=== PATIENT | female | born 1980 | race Caucasian/White ===

== ENCOUNTER 2017-01-24 06:54 | Inpatient (IN) | payer MEDICAID ==
[~2017-01-24] VITALS: Ht 170.2 cm; Wt 64.4 kg
[~2017-01-24 06:54] MED LIST: ALBU18HF INHALATION
--- NOTE | 2017-01-24 07:18 | ERA ---
ER Documentation Chief Complaint Date/Time DATE: 01/24/17 TIME: 07:14 Chief Complaint left side facial swelling with no drainage. possible shooting drugs HPI Patient is a 36-year-old female who presents with 1 week of gradual onset, constant, progressive, moderate left-sided facial swelling. She denies trauma. She reports subjective fevers. She states that it has been getting progressively worse and that she has difficulty opening her mouth. She states that she was seen [facility] yesterday and had a CT scan performed. She was diagnosed with a contusion and prescribed Keflex. She came back to the ER because her symptoms have worsened since. ROS All systems reviewed and are negative except as per history of present illness. Medications Home Meds Discontinued Scripts Albuterol Sulfate* (Ventolin HFA*) 18 Gm Hfa.aer.ad, 2 PUFF INHALATION Q4H, #1 INHALER Prov:DAYO RAELaura 04/27/16 Allergies Allergies: Coded Allergies: No Known Allergy (Unverified , 01/24/17) PMhx/Soc Past medical history: Ovarian cancer, colon cancer, asthma Past surgical history: Resection of colon cancer Social history: Injects methamphetamine, reports recent use. Smokes cigarettes. History of Surgery: Yes (colon resection) Anesthesia Reaction: No Hx Neurological Disorder: Yes (Migraines) Hx Respiratory Disorders: No Hx Cardiac Disorders: Yes (STATES "CO") Hx Psychiatric Problems: No Hx Miscellaneous Medical Probl: Yes (OVARIAN CA, Colon CA, arthritis) Hx Alcohol Use: Yes Hx Substance Use: Yes (METH ) Hx Tobacco Use: Yes Smoking Status: Current every day smoker FmHx Family History: No coronary disease, No diabetes Physical Exam Vitals Vital Signs Date Time Temp Pulse Resp B/P Pulse Ox O2 Delivery O2 Flow Rate FiO2 01/24/17 13:16 98.9 78 16 128/84 100 Room Air 01/24/17 09:42 99.1 81 16 126/86 100 Room Air 01/24/17 07:01 99.5 98 18 123/89 100 Physical Exam Const: Alert, no acute distress Head: Atraumatic Eyes: Normal Conjunctiva, No pallor, no icterus ENT: Normal External EarsAnd nose. Left facial edema extending to the lip with mild abrasion to the skin. Dentition grossly intact. Imaged mouth opening. No submandibular induration. Neck: Full range of motion..~ No meningismus. Resp: Clear to auscultation bilaterally, No wheezes, no rales Cardio: Regular rate and rhythm, no murmurs Abd: Soft, non tender, non distended. Skin: No petechiae or rashes Back: No midline or flank tenderness Ext: No cyanosis, or edema Neur: Awake and alert Psych: Normal Mood and Affect Result Diagram: 01/24/17 0750 01/24/17 0750 Results 24 hrs Laboratory Tests Test 01/24/17 07:50 White Blood Count 8.910^3/ul Red Blood Count 3.6710^6/ul Hemoglobin 10.9g/dl Hematocrit 33.9% Mean Corpuscular Volume 92.4fl Mean Corpuscular Hemoglobin 29.7pg Mean Corpuscular Hemoglobin Concent 32.2g/dl Red Cell Distribution Width 13.7% Platelet Count 20191^3/UL Mean Platelet Volume 10.3fl Neutrophils % 75.3% Lymphocytes % 16.5% Monocytes % 6.8% Eosinophils % 0.8% Basophils % 0.3% Nucleated Red Blood Cells % 0.0/100WBC Neutrophils # (Manual) 6.710^3/ul Lymphocytes # 1.510^3/ul Monocytes # 0.610^3/ul Eosinophils # 0.110^3/ul Basophils # 0.010^3/ul Nucleated Red Blood Cells # 0.010^3/ul Sodium Level 139mmol/L Potassium Level 3.7mmol/L Chloride Level 105mmol/L Carbon Dioxide Level 27mmol/L Anion Gap 11 Blood Urea Nitrogen 6mg/dl Creatinine 0.55mg/dl Glucose Level 97mg/dl Calcium Level 8.7mg/dl Serum HCG, Qualitative NEGATIVE Current Medications Medications (Trade) Dose Ordered Sig/Andie Route PRN Reason Start Time Stop Time Status Last Admin Dose Admin Sodium Chloride 1,000 ml @ 1,000 mls/hr Q1H ONCE IV 01/24/17 07:30 01/24/17 08:29 DC 01/24/17 07:45 Ceftriaxone Sodium 50 ml @ 100 mls/hr ONCE ONCE IVPB 01/24/17 07:30 01/24/17 07:59 DC 01/24/17 08:23 Vancomycin HCl/ Sodium Chloride (Vancocin/NS) 250 ml @ 125 mls/hr ONCE ONCE IVPB 01/24/17 07:30 01/24/17 09:29 DC 01/24/17 07:30 IV Flush 10 ml 10 ml STK-MED ONCE .ROUTE 01/24/17 08:55 01/24/17 08:56 DC 01/24/17 09:21 Sodium Chloride (NS) 100 ml @ ud STK-MED ONCE .ROUTE 01/24/17 08:55 01/24/17 08:56 DC 01/24/17 09:22 Iohexol (Omnipaque 300mg/ ml) 30 ml STK-MED ONCE .ROUTE 01/24/17 08:55 01/24/17 08:56 DC 01/24/17 09:22 Lidocaine/ Epinephrine (Xylocaine 2%/ Epi Mpf(Sdv)) 20 ml STK-MED ONCE .ROUTE 01/24/17 12:14 01/24/17 12:15 DC Morphine Sulfate (morphine) 4 mg ONCE STAT IV 01/24/17 12:27 01/24/17 12:28 DC 01/24/17 12:34 Morphine Sulfate (morphine) 4 mg ONCE STAT IV 01/24/17 14:01 01/24/17 14:03 DC 01/24/17 14:15 Procedures/MDM Patient is a 36-year-old female who presents with extensive left-sided facial swelling. She had a CT maxillofacial bones performed yesterday without contrast at an outside hospital, and I was able to obtain the records. There is no comment on the soft tissues however. Therefore the patient had a CT with contrast, which demonstrates an abscess. I called Dr. Cabrera, the ENT doctor slot operations manager, and he saw the patient in the ER and performed an incision and drainage. The abscess appeared to arise from a periodontal abscess. The patient was treated with IV fluids, vancomycin and ceftriaxone. Given extensive cellulitis associated with the abscess, I will admit the patient for IV antibiotics and further treatment. Departure Diagnosis: Primary Impression: Cellulitis and abscess of face Condition: KAREN Gale MD Jan 24, 2017 07:17
[2017-01-24] MEDS ORDERED: VANCOMYCIN 1 GM in SOD CHLORIDE 0.9% 250 ML IVPB ONE (07:30)
[2017-01-24] MEDS ORDERED: CEFTRIAXONE 2 GM/50 ML (PMX) 50 ML IVPB ONE (07:30)
[2017-01-24] MEDS ORDERED: SOD CHLORIDE 0.9% 1,000 ML IV ONE (07:30)
[2017-01-24 08:22] LABS: BASOPHILS % 0.3 % (0.0-2.0); EOSINOPHILS # 0.1 10^3/ul (0.0-0.5); EOSINOPHILS % 0.8 % (0.0-7.0); HEMATOCRIT 33.9 % (37.0-47.0); HEMOGLOBIN 10.9 g/dl (12.0-16.0); LYMPHOCYTES # 1.5 10^3/ul (0.8-2.9); LYMPHOCYTES % 16.5 % (15.0-51.0); MEAN CORPUSCULAR HEMOGLOBIN 29.7 pg (29.0-33.0); MEAN CORPUSCULAR HGB CONC 32.2 g/dl (32.0-37.0); MEAN CORPUSCULAR VOLUME 92.4 fl (82.0-101.0); MEAN PLATELET VOLUME 10.3 fl (7.4-10.4); MONOCYTE # 0.6 10^3/ul (0.3-0.9); MONOCYTES % 6.8 % (0.0-11.0); NEUTROPHILS % 75.3 % (39.0-77.0); PLATELET COUNT 246 10^3/UL (140-415); RED BLOOD COUNT 3.67 10^6/ul (4.20-5.40); RED CELL DISTRIBUTION WIDTH 13.7 % (11.5-14.5); WHITE BLOOD COUNT 8.9 10^3/ul (4.8-10.8)
[2017-01-24 08:25] LABS: CALCIUM 8.7 mg/dl (8.4-10.2); CREATININE 0.55 mg/dl (0.44-1.00); POTASSIUM 3.7 mmol/L (3.5-5.1)
[2017-01-24] MEDS ORDERED: SOD CHLORIDE 0.9% 100 ML ONE (08:55)
[2017-01-24] MEDS ORDERED: IOHEXOL 300MG/ML 30 ML BTL ONE (08:55)
--- NOTE | 2017-01-24 09:34 | RADRPT ---
PROCEDURE: CT facial bones with contrast CLINICAL INDICATION: Left sided facial swelling. Concern for abscess. COMPARISON: None relevant listed. TECHNIQUE: Axial images of the facial bones with coronal and sagittal reformats. 80 mL Omnipaque-300 intravenous contrast. DOSE: The estimated administered radiation dose was CTDI vol = 54 mGy. DLP = 969 mGy-cm. One or mo re of the following dose reduction techniques were used: automated exposure control, adjustment of t he mA and/or kV according to patient size, or use of iterative reconstruction. FINDINGS: Soft tissues: . Focal lucency about the left maxillary tooth (#13 on series 4, image 113) with mata kthrough of the buckle cortex and surrounding soft tissue abscess measuring 19 x 18 x 14 mm. Marked surrounding edema and inflammation extending to the left parasymphyseal mandible. Multiple enlarged reactive left level IB and IIA lymph nodes. Bones: Old fracture of the right lamina papyracea. Orbits: Normal. Paranasal sinuses: Mild paranasal sinus mucosal thickening. Mastoids and middle ears: Clear. Visualized brain: Normal. Additional comment: None. IMPRESSION: Periodontal abscess involving left maxillary tooth #13 which breaks through the maxillary cortex. T here is a surrounding soft tissue abscess measuring 19 x 18 x 14 mm with large amount of surrounding cellulitis and reactive lymph nodes. RPTAT: PP Physician Chelita Date Time Electronically viewed and signed by Physician Chelita on 01/24/2017 09:34 /
[2017-01-24] MEDS ORDERED: LIDOCAINE 2%/EPI MPF (SDV) 20 ML VIAL ONE (12:14)
[2017-01-24] MEDS ORDERED: morphine 4 MG/ML VIAL IV STA ×2 (12:27→14:01)
[2017-01-24] MEDS ORDERED: DOCUSATE SODIUM 100 MG CAP PO PRN (15:30)
[2017-01-24] MEDS ORDERED: NA PHOSPHATE/BIPHOS 133 ML ENEMA PR PRN (15:30)
[2017-01-24] MEDS ORDERED: MAGNESIUM HYDROXIDE 30ML CUP PO PRN (15:30)
[2017-01-24] MEDS ORDERED: morphine 2 MG INJ IV PRN (15:30)
[2017-01-24] MEDS ORDERED: NACL 0.9% 3 ML SYG IV SCH (15:30)
[2017-01-24] MEDS ORDERED: BISACODYL (EC) 5 MG TAB PO PRN (15:30)
[2017-01-24] MEDS ORDERED: ACETAMINOPHEN 325 MG TAB PO PRN (15:30)
[2017-01-24] MEDS ORDERED: OXYCODONE/ACETAMINOPHEN (10/325) TAB PO PRN (15:30)
[2017-01-24] MEDS ORDERED: VANCOMYCIN IV PER PHARMACY XX SCH (15:30)
[2017-01-24] MEDS ORDERED: ONDANSETRON 4 MG INJ IV PRN ×2 (15:30)
[2017-01-24 16:00] VITALS: TEMP 98.2
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
--- NOTE | 2017-01-24 16:52 | CONS ---
Date/Time of Note Date/Time of Note DATE: 01/24/17 TIME: 16:35 Assessment/Plan Assessment/Plan Chief Complaint/Hosp Course ID SHORT CHART REVIEW - INITIAL ASSESSMENT NOTE * Full consult note dictation to follow from Dr. Busby, covering for Dr. Siddiqui * * Note: Patient was not seen; note represents initial chart review. HPI 36 YO F presents to [facility] ED with severe facial cellulitis. Seen at [facility] yesterday given Rx Keflex. => INITIAL ED WORK UP: * TMax 99.5, WBC 8.9 * Facial CT reveals: IMPRESSION:Periodontal abscess involving left maxillary tooth #13 which breaks through the maxillary cortex. There is a surrounding soft tissue abscess measuring 19 x 18 x 14 mm with large amount of surrounding cellulitis and reactive lymph nodes. * ENT called for urgent consult: Dr. Cabrera, saw the patient in the ER and performed an incision and drainage. Reportedly, the abscess appeared to arise from a periodontal dental infection abscess. Past medical history: Ovarian cancer, colon cancer, asthma, OR, migraine RAJPUT Past surgical history: Resection of colon cancer Social history: Injects methamphetamine, reports recent use. Smokes cigarettes. ID IMPRESSION 36 yo F with medical problems as above admit with: 1. SIRS w/ low grade temps due to #2 2. Severe facial cellulitis 2/2 Periodontal abscess involving left maxillary tooth #13 which breaks through the maxillary cortex, with surrounding soft tissue abscess/ * POD #0-> s/p I&D in ED by Dr. Cabrera 01/24/17 3. Substance abuse w/METH injection -> Query submucosal self-injecting into oral cavity? 4. Tobaccoism 5. Psych/Social Dx NOS ?Homeless CURRENT ABX: Vanco IV + Ceftriaxone ID RECOMMENDATIONS: 1. Continue Vanco IV 2. Swab nares for MRSA screen 3. Start Zosyn 4. Thank you, I have notified Dr. Busby, ID attending personal care aide for Dr. Siddiqui who will complete full note dictation. Problems: Consultation Date/Type/Reason Admit Date/Time Initial Consult Date Exam/Review of Systems Vital Signs Vitals Vital Signs Date Time Temp Pulse Resp B/P Pulse Ox O2 Delivery O2 Flow Rate FiO2 01/24/17 13:16 98.9 78 16 128/84 100 Room Air Results Result Diagram: 01/24/17 0750 01/24/17 0750 Results 24 hrs Laboratory Tests Test 01/24/17 07:50 White Blood Count 8.9 # Red Blood Count 3.67 L Hemoglobin 10.9 L Hematocrit 33.9 L Mean Corpuscular Volume 92.4 Mean Corpuscular Hemoglobin 29.7 Mean Corpuscular Hemoglobin Concent 32.2 Red Cell Distribution Width 13.7 Platelet Count 246 Mean Platelet Volume 10.3 # Neutrophils % 75.3 Lymphocytes % 16.5 Monocytes % 6.8 Eosinophils % 0.8 Basophils % 0.3 Nucleated Red Blood Cells % 0.0 Neutrophils # (Manual) 6.7 Lymphocytes # 1.5 Monocytes # 0.6 Eosinophils # 0.1 Basophils # 0.0 Nucleated Red Blood Cells # 0.0 Sodium Level 139 Potassium Level 3.7 Chloride Level 105 Carbon Dioxide Level 27 Anion Gap 11 Blood Urea Nitrogen 6 L Creatinine 0.55 Glucose Level 97 Calcium Level 8.7 Serum HCG, Qualitative NEGATIVE Medications Medications Current Medications Sodium Chloride (NS) 1,000 ml @ 125 mls/hr Q8H IV ; Start 01/24/17 at 15:09 Ondansetron HCl (Zofran Inj) 4 mg Q6H PRN IV NAUSEA AND/OR VOMITING; Start 01/24 at 15:30 Acetaminophen (Tylenol Tab) 650 mg Q6H PRN PO PAIN LEVEL 1-3 OR FEVER; Start at 15:30 Docusate Sodium (Colace) 100 mg Q12H PRN PO CONSTIPATION; Start 01/24/17 at 15: 30 Magnesium Hydroxide (Milk Of Mag) 30 ml DAILY PRN PO CONSTIPATION; Start at 15:30 Bisacodyl (Dulcolax) 5 mg DAILY PRN PO CONSTIPATION; Start 01/24/17 at 15:30 Sodium Biphosphate/ Sodium Phosphate (Fleet Enema) 133 ml DAILY PRN [place] CONSTIPATION; Start 01/24/17 at 15:30 Oxycodone/ Acetaminophen (Endocet (10/ 325)) 1 tab Q3 PRN PO MODERATE PAIN LEVEL 4-6; Start 01/24/17 at 15:30 Morphine Sulfate 2 mg 2 mg Q6 PRN IV SEVERE PAIN LEVEL 7-10; Start 01/24/17 at 15:30 Vancomycin HCl/ Sodium Chloride (Vancocin/NS) 150 ml @ 75 mls/hr Q8H IVPB ; Start 01/24/17 at 17:00 Miscellaneous Information (*Rx Drug Level Order Reminder*) VANCOMYCIN TROUGH ON ... ONCE ONCE XX ; Start 01/25/17 at 08:00; Stop 01/25/17 at 08:01 LAZ ZHANG NP Jan 24, 2017 16:51
[2017-01-24] MEDS ORDERED: VANCOMYCIN 750 MG in SOD CHLORIDE 0.9% 150 ML IVPB SCH (17:00)
[2017-01-24 17:05] VITALS: BP 133/73; PULSE 92; RESP 18
[2017-01-24] MEDS: SOD CHLORIDE 0.9% 1,000 ML IV SCH ×2 (17:29→23:09)
[2017-01-24 18:09] VITALS: Ht 170.2 cm; Wt 64.4 kg
[2017-01-24] MEDS ORDERED: PIPER-TAZO 3.375 GM IV (PMX) 100 ML IVPB SCH (20:00)
[2017-01-24] MEDS: ACETAMINOPHEN 325 MG TAB PO PRN (20:28)
[2017-01-24 20:54] VITALS: BP 121/73; RESP 18
[2017-01-24] MEDS: DEXTROSE 5% IVPB SCH (23:32)
[2017-01-24] MEDS: PENICILLIN K IVPB SCH (23:32)
[2017-01-25] MEDS: ACETAMINOPHEN 325 MG TAB PO PRN ×2 (02:43→22:39)
[2017-01-25 03:17] VITALS: BP 124/74; RESP 18
[2017-01-25] MEDS: SOD CHLORIDE 0.9% 1,000 ML IV SCH ×3 (04:14→21:37)
[2017-01-25] MEDS: DEXTROSE 5% IVPB SCH ×2 (05:30→12:17)
[2017-01-25] MEDS: PENICILLIN K IVPB SCH ×2 (05:30→12:17)
[2017-01-25 05:52] LABS: HAAIG REFLEX REFLEX FILED
[2017-01-25 05:58] LABS: BASOPHILS % 0.4 % (0.0-2.0); EOSINOPHILS # 0.1 10^3/ul (0.0-0.5); EOSINOPHILS % 1.2 % (0.0-7.0); HEMATOCRIT 35.5 % (37.0-47.0); HEMOGLOBIN 11.1 g/dl (12.0-16.0); LYMPHOCYTES # 0.7 10^3/ul (0.8-2.9); LYMPHOCYTES % 9.9 % (15.0-51.0); MEAN CORPUSCULAR HEMOGLOBIN 28.7 pg (29.0-33.0); MEAN CORPUSCULAR HGB CONC 31.3 g/dl (32.0-37.0); MEAN CORPUSCULAR VOLUME 91.7 fl (82.0-101.0); MEAN PLATELET VOLUME 10.5 fl (7.4-10.4); MONOCYTE # 0.4 10^3/ul (0.3-0.9); MONOCYTES % 5.2 % (0.0-11.0); NEUTROPHILS % 82.9 % (39.0-77.0); PLATELET COUNT 236 10^3/UL (140-415); RED BLOOD COUNT 3.87 10^6/ul (4.20-5.40); RED CELL DISTRIBUTION WIDTH 14.1 % (11.5-14.5); WHITE BLOOD COUNT 7.4 10^3/ul (4.8-10.8)
[2017-01-25 06:29] LABS: ALBUMIN 3.2 g/dl (3.3-4.9); ALBUMIN/GLOBULIN RATIO 1.03; BILIRUBIN,INDIRECT 0.3 mg/dl (0-1.1); BILIRUBIN,TOTAL 0.3 mg/dl (0.2-1.3); CALCIUM 8.5 mg/dl (8.4-10.2); CHOL/HDL RATIO 2.6 RATIO; CREATININE 0.44 mg/dl (0.44-1.00); MAGNESIUM 1.9 mg/dl (1.7-2.5); PHOSPHORUS 3.4 mg/dl (2.5-4.9); POTASSIUM 3.2 mmol/L (3.5-5.1); TOTAL PROTEIN 6.3 g/dl (6.1-8.1)
[2017-01-25 06:33] LABS: IRON 12 ug/dl (35-150)
[2017-01-25 06:42] LABS: TOTAL IRON BINDING CAPACITY 285 ug/dl (241-421)
[2017-01-25 06:47] LABS: ADD UMIC NO; UR ASCORBIC ACID NEGATIVE (NEGATIVE); UR BILIRUBIN (Dip) NEGATIVE (NEGATIVE); UR BLOOD (Dip) NEGATIVE (NEGATIVE); UR CLARITY CLEAR (CLEAR); UR COLOR STRAW (YELLOW); UR GLUCOSE (Dip) NEGATIVE (NEGATIVE); UR KETONES (Dip) NEGATIVE (NEGATIVE); UR LEUKOCYTE ESTERASE (Dip) NEGATIVE Leu/ul (NEGATIVE); UR NITRITE (Dip) NEGATIVE (NEGATIVE); UR SPECIFIC GRAVITY (Dip) 1.009 (1.003-1.030); UR TOTAL PROTEIN (Dip) NEGATIVE (NEGATIVE); UR UROBILINOGEN (Dip) NEGATIVE (NEGATIVE)
[2017-01-25 06:55] LABS: FERRITIN 54.4 ng/ml (6.2-137.0)
[2017-01-25 07:09] LABS: HEPATITIS B CORE ANTIBODY NEGATIVE (NEGATIVE)
[2017-01-25 07:32] LABS: THYROID STIMULATING HORMONE 0.476 MIU/L (0.465-4.680)
[2017-01-25 07:57] VITALS: BP 119/77; RESP 20
[2017-01-25] MEDS ORDERED: POTASSIUM CHLORIDE (SR) 20 MEQ TAB PO STA (13:45)
--- NOTE | 2017-01-25 13:51 | PN ---
Date/Time of Note Date/Time of Note DATE: 01/25/17 TIME: 13:42 Assessment/Plan VTE Prophylaxis VTE Prophylaxis Intervention: SCD's Lines/Catheters IV Catheter Type (from Nrsg): Peripheral IV Assessment/Plan Assessment/Plan 1. Periodontal abscess involving left maxillary tooth #13 which breaks through the maxillary cortex with surrounding soft tissue abscess measuring 19 x 18 x 14 mm with large amount of surrounding cellulitis and reactive lymph nodes, s/p I&D per ENT Dr. Cabrera, on zosyn/vanco 2. Hypokalemia, KCL Subjective 24 Hr Interval Summary Free Text/Dictation left facial pain and swelling Exam/Review of Systems Vital Signs Vitals Vital Signs Date Time Temp Pulse Resp B/P Pulse Ox O2 Delivery O2 Flow Rate FiO2 01/25/17 07:57 98.1 74 20 119/77 99 01/24/17 17:05 Room Air Intake and Output 01/24/17 01/24/17 01/25/17 15:00 23:00 07:00 Intake Total 1150 ml 183 ml 2045 ml Balance 1150 ml 183 ml 2045 ml Exam Constitutional: alert, oriented, well developed Head: atraumatic, normocephalic Eyes: EOMI, nl conjunctiva, nl lids ENMT: nl external ears & nose, other (left facial swelling) Neck: non-tender, supple Respiratory: clear to auscultation, normal air movement, No congested cough, No crackles/rales, No diminished breath sounds, No intercostal retraction, No labored breathing, No other, No respirations, No tactile fremitus, No wheezing Cardiovascular: nl pulses, regular rate and rhythm, No S3, No S4, No bruits, No diastolic murmur, No edema, No gallop, No irregular rhythm, No jugular venous distention (JVD), No murmurs/extra sounds, No other, No rub, No systolic murmur Gastrointestinal: nl liver, spleen, non-tender, soft, No ascites, No bowel sounds, No distended, No firm, No hepatomegaly, No mass , No other, No rebound or guarding, No splenomegaly, No surgical scars, No tender Musculoskeletal: nl extremities to inspection Extremities: normal pulses, No calf tenderness, No clubbing, No cyanosis, No edema, No other, No palpable cord, No pitting pedal edema, No tenderness Neurological: EMPLOYMENT COORDINATOR II-XII intact, nl mental status, nl speech, nl strength Results Result Diagram: 01/25/1744201/25/173 Results 24 hrs Laboratory Tests Test 01/25/17 02:30 01/25/17 04:43 01/25/17 08:00 Urine Color STRAW Urine Clarity CLEAR Urine pH 7.0 Urine Specific Moodus 1.009 Urine Ketones NEGATIVE Urine Nitrite NEGATIVE Urine Bilirubin NEGATIVE Urine Urobilinogen NEGATIVE Urine Leukocyte Esterase NEGATIVE Urine Hemoglobin NEGATIVE Urine Glucose NEGATIVE Urine Total Protein NEGATIVE White Blood Count 7.4 Red Blood Count 3.87 L Hemoglobin 11.1 L Hematocrit 35.5 L Mean Corpuscular Volume 91.7 Mean Corpuscular Hemoglobin 28.7 L Mean Corpuscular Hemoglobin Concent 31.3 L Red Cell Distribution Width 14.1 Platelet Count 236 Mean Platelet Volume 10.5 H Neutrophils % 82.9 H Lymphocytes % 9.9 L Monocytes % 5.2 Eosinophils % 1.2 Basophils % 0.4 Nucleated Red Blood Cells % 0.0 Neutrophils # (Manual) 6.2 Lymphocytes # 0.7 L Monocytes # 0.4 Eosinophils # 0.1 Basophils # 0.0 Nucleated Red Blood Cells # 0.0 Sodium Level 136 Potassium Level 3.2 L Chloride Level 103 Carbon Dioxide Level 27 Anion Gap 9 Blood Urea Nitrogen 4 L Creatinine 0.44 Glucose Level 99 Hemoglobin A1c 5.2 Calcium Level 8.5 Phosphorus Level 3.4 Magnesium Level 1.9 Iron Level 12 L Total Iron Binding Capacity 285 Percent Iron Saturation 4 L Ferritin 54.4 Total Bilirubin 0.3 Direct Bilirubin 0.00 Indirect Bilirubin 0.3 Aspartate Amino Transf (AST/SGOT) 28 Alanine Aminotransferase (ALT/SGPT) 31 Alkaline Phosphatase 100 Total Protein 6.3 Albumin 3.2 L Globulin 3.10 Albumin/Globulin Ratio 1.03 Triglycerides Level 67 Cholesterol Level 111 LDL Cholesterol, Calculated 56 HDL Cholesterol 42 Cholesterol/HDL Ratio 2.6 Thyroid Stimulating Hormone (TSH) 0.476 Hepatitis B Surface Antigen NEGATIVE Hepatitis B Core Total Antibody NEGATIVE Hepatitis C Antibody NEGATIVE Vancomycin Level Trough < 5.0 L Medications Medications Current Medications Sodium Chloride (NS) 1,000 ml @ 125 mls/hr Q8H IV Last administered on t 04:14; Admin Dose 125 MLS/HR; Start 01/24/17 at 15:09 Ondansetron HCl (Zofran Inj) 4 mg Q6H PRN IV NAUSEA AND/OR VOMITING; Start 01/24 at 15:30 Acetaminophen (Tylenol Tab) 650 mg Q6H PRN PO PAIN LEVEL 1-3 OR FEVER Last administered on 01/25/17 02:43; Admin Dose 650 MG; Start 01/24/17 at 15:30 Docusate Sodium (Colace) 100 mg Q12H PRN PO CONSTIPATION; Start 01/24/17 at 15: 30 Magnesium Hydroxide (Milk Of Mag) 30 ml DAILY PRN PO CONSTIPATION; Start at 15:30 Bisacodyl (Dulcolax) 5 mg DAILY PRN PO CONSTIPATION; Start 01/24/17 at 15:30 Sodium Biphosphate/ Sodium Phosphate (Fleet Enema) 133 ml DAILY PRN [place] CONSTIPATION; Start 01/24/17 at 15:30 Oxycodone/ Acetaminophen (Endocet (10/ 325)) 1 tab Q3 PRN PO MODERATE PAIN LEVEL 4-6; Start 01/24/17 at 15:30 Morphine Sulfate 2 mg 2 mg Q6 PRN IV SEVERE PAIN LEVEL 7-10; Start 01/24/17 at 15:30 Penicillin G Potassium/Dextrose (Penicillin G K/ D5W) 100 ml @ 200 mls/hr Q6 IVPB Last administered on 01/25/17 12:17; Admin Dose 200 MLS/HR; Start 01/25/17 at 00:00; Stop 02/01/17 at 18:00 NICKY CALVO MD Jan 25, 2017 13:51
[2017-01-25] MEDS ORDERED: VANCOMYCIN IV PER PHARMACY XX SCH (14:00)
[2017-01-25] MEDS: PIPER-TAZO 3.375 GM IV (PMX) 100 ML IVPB SCH ×2 (14:34→21:36)
[2017-01-25] MEDS: VANCOMYCIN 1 GM in NS 250 ML IVPB SCH ×2 (15:08→22:09)
[2017-01-25 16:36] VITALS: BP 112/75; RESP 18
[2017-01-25 20:01] VITALS: BP 109/65; RESP 21
--- NOTE | 2017-01-25 20:56 | CONS ---
Date/Time of Note Date/Time of Note DATE: 01/25/17 TIME: 20:47 Assessment/Plan Assessment/Plan Chief Complaint/Hosp Course * Note: * Dr. Busby saw the patient initial ID consult on 01/24/17 with reported dictation failure due to technical problem NOS ID PROGRESS NOTE CURRENT ABX: Vanco IV + Zosyn * s/p Ceftriaxone in ED * s/p PCN G -> Rx 01/[address] Busby -> DC"d today after primary continued Zosyn (note dictation failure not posted) 24H INTERVAL SUMMARY * Doing OK, TMax today 99.3 -- yesterday TMax 99.5, WBC 7.4 down from 8.9 * Facial CT reveals: IMPRESSION:Periodontal abscess involving left maxillary tooth #13 which breaks through the maxillary cortex. There is a surrounding soft tissue abscess measuring 19 x 18 x 14 mm with large amount of surrounding cellulitis and reactive lymph nodes. * ENT called for urgent consult: Dr. Cabrera, saw the patient in the ER and performed an incision and drainage. Reportedly, the abscess appeared to arise from a periodontal dental infection abscess. Exam Constitutional: other (drowsy) Head: other (Lt facial edema; no adenopathy. Upper lip larger than lower.) Respiratory: clear to auscultation Cardiovascular: regular rate and rhythm Gastrointestinal: non-tender, soft Musculoskeletal: other (no edema) ID IMPRESSION 36 yo F with medical problems as above admit with: 1. SIRS w/ low grade temps due to #2 2. Severe facial cellulitis 2/2 Periodontal abscess involving left maxillary tooth #13 which breaks through the maxillary cortex, with surrounding soft tissue abscess/ * POD #0-> s/p I&D in ED by Dr. Cabrera 01/24/17 3. Substance abuse w/METH injection -> Query submucosal self-injecting into oral cavity? 4. Tobaccoism 5. Psych/Social Dx NOS ?Homeless CURRENT ABX: Vanco IV + Zosyn s/p Ceftriaxone in ED s/p PCN G -> Rx 01/[address] Busby -> DC"d today after primary continued Zosyn ( note dictation failure not posted) ID RECOMMENDATIONS: 1. Continue Vanco IV 2. Swab nares for MRSA screen == still pending 3. Anticipate change ABX to PO Augmentin 500mg po TID x 10 days & DC home to dental follow up when cleared by primary . Problems: Consultation Date/Type/Reason Admit Date/Time Jan 24, 2017 at 15:16 Exam/Review of Systems Vital Signs Vitals Vital Signs Date Time Temp Pulse Resp B/P Pulse Ox O2 Delivery O2 Flow Rate FiO2 01/25/17 20:01 98.6 85 21 109/65 96 01/24/17 17:05 Room Air Intake and Output 01/24/17 01/24/17 01/25/17 14:59 22:59 06:59 Intake Total 1150 ml 183 ml 2045 ml Balance 1150 ml 183 ml 2045 ml Results Result Diagram: 01/25/17 0443 01/25/17 0443 Results 24 hrs Laboratory Tests Test 01/25/17 02:30 01/25/17 04:43 01/25/17 08:00 Urine Color STRAW Urine Clarity CLEAR Urine pH 7.0 Urine Specific [place] 1.009 Urine Ketones NEGATIVE Urine Nitrite NEGATIVE Urine Bilirubin NEGATIVE Urine Urobilinogen NEGATIVE Urine Leukocyte Esterase NEGATIVE Urine Hemoglobin NEGATIVE Urine Glucose NEGATIVE Urine Total Protein NEGATIVE White Blood Count 7.4 Red Blood Count 3.87 L Hemoglobin 11.1 L Hematocrit 35.5 L Mean Corpuscular Volume 91.7 Mean Corpuscular Hemoglobin 28.7 L Mean Corpuscular Hemoglobin Concent 31.3 L Red Cell Distribution Width 14.1 Platelet Count 236 Mean Platelet Volume 10.5 H Neutrophils % 82.9 H Lymphocytes % 9.9 L Monocytes % 5.2 Eosinophils % 1.2 Basophils % 0.4 Nucleated Red Blood Cells % 0.0 Neutrophils # (Manual) 6.2 Lymphocytes # 0.7 L Monocytes # 0.4 Eosinophils # 0.1 Basophils # 0.0 Nucleated Red Blood Cells # 0.0 Sodium Level 136 Potassium Level 3.2 L Chloride Level 103 Carbon Dioxide Level 27 Anion Gap 9 Blood Urea Nitrogen 4 L Creatinine 0.44 Glucose Level 99 Hemoglobin A1c 5.2 Calcium Level 8.5 Phosphorus Level 3.4 Magnesium Level 1.9 Iron Level 12 L Total Iron Binding Capacity 285 Percent Iron Saturation 4 L Ferritin 54.4 Total Bilirubin 0.3 Direct Bilirubin 0.00 Indirect Bilirubin 0.3 Aspartate Amino Transf (AST/SGOT) 28 Alanine Aminotransferase (ALT/SGPT) 31 Alkaline Phosphatase 100 Total Protein 6.3 Albumin 3.2 L Globulin 3.10 Albumin/Globulin Ratio 1.03 Triglycerides Level 67 Cholesterol Level 111 LDL Cholesterol, Calculated 56 HDL Cholesterol 42 Cholesterol/HDL Ratio 2.6 Thyroid Stimulating Hormone (TSH) 0.476 Hepatitis B Surface Antigen NEGATIVE Hepatitis B Core Total Antibody NEGATIVE Hepatitis C Antibody NEGATIVE Vancomycin Level Trough < 5.0 L Medications Medications Current Medications Sodium Chloride (NS) 1,000 ml @ 125 mls/hr Q8H IV Last administered on 04:14; Admin Dose 125 MLS/HR; Start 01/24/17 at 15:09 Ondansetron HCl (Zofran Inj) 4 mg Q6H PRN IV NAUSEA AND/OR VOMITING; Start 01/24 at 15:30 Acetaminophen (Tylenol Tab) 650 mg Q6H PRN PO PAIN LEVEL 1-3 OR FEVER Last administered on 01/25/17 02:43; Admin Dose 650 MG; Start 01/24/17 at 15:30 Docusate Sodium (Colace) 100 mg Q12H PRN PO CONSTIPATION; Start 01/24/17 at 15: 30 Magnesium Hydroxide (Milk Of Mag) 30 ml DAILY PRN PO CONSTIPATION; Start at 15:30 Bisacodyl (Dulcolax) 5 mg DAILY PRN PO CONSTIPATION; Start 01/24/17 at 15:30 Sodium Biphosphate/ Sodium Phosphate (Fleet Enema) 133 ml DAILY PRN IN CONSTIPATION; Start 01/24/17 at 15:30 Oxycodone/ Acetaminophen (Endocet (10/ 325)) 1 tab Q3 PRN PO MODERATE PAIN LEVEL 4-6; Start 01/24/17 at 15:30 Morphine Sulfate 2 mg 2 mg Q6 PRN IV SEVERE PAIN LEVEL 7-10; Start 01/24/17 at 15:30 Piperacillin Sod/ Tazobactam Sod 100 ml @ 200 mls/hr Q8 IVPB Last administered on 01/25/17 14:34; Admin Dose 200 MLS/HR; Start 01/25/17 at 14:00 Vancomycin HCl (Vancocin) 250 ml @ 125 mls/hr Q8H IVPB Last administered on 15:08; Admin Dose 125 MLS/HR; Start 01/25/17 at 14:00 Miscellaneous Information (*Rx Drug Level Order Reminder*) VANCOMYCIN TROUGH 01/26 AT 1300 ONCE ONCE XX ; Start 01/26/17 at 13:00; Stop 01/26/17 at 13:01 LAZ ZHANG NP Jan 25, 2017 20:56
[2017-01-26 02:41] VITALS: BP 102/62; RESP 20
[2017-01-26 05:44] LABS: CALCIUM 9.1 mg/dl (8.4-10.2); CREATININE 0.51 mg/dl (0.44-1.00); POTASSIUM 4.6 mmol/L (3.5-5.1)
[2017-01-26] MEDS: PIPER-TAZO 3.375 GM IV (PMX) 100 ML IVPB SCH ×2 (06:04→14:00)
[2017-01-26] MEDS: VANCOMYCIN 1 GM in NS 250 ML IVPB SCH ×2 (06:49→14:00)
[2017-01-26] MEDS: SOD CHLORIDE 0.9% 1,000 ML IV SCH ×2 (08:03→15:09)
[2017-01-26 08:27] VITALS: BP 112/66; RESP 18
--- NOTE | 2017-01-26 12:04 | PDOCDIS ---
Discharge Instructions CONDITION Patient Condition: Stable HOME CARE INSTRUCTIONS: Special Diet: soft FOLLOW UP/APPOINTMENTS Follow-up Plan 1.Follow-up with a dentist in 2 days 2.Follow up with primary care physician in 1 week If you don't have one please let someone know, we can give you resources that may help you pick one. You may also call your insurance company to assign one to you. Review your medication list with your nurse before leaving and if you need new prescriptions please let your nurse know. I may have made changes to your home medications or given you new prescriptions, please let your primary doctor know as well. Stay compliant with your medications and report any side effects to your PCP or pharmacist. Return to the ER if you have any concerns and cannot reach your doctors or call your insurance company, they usually have a nurse that can help you. 3. Call 911 or go to the nearest emergency room if experiencing loss of consciousness, dizziness, chest pain, shortness of breath, vomiting/abdominal pain, speech difficulties, motor weakness or any unusual symptoms. DILIP BRITO NP Jan 26, 2017 12:04
[2017-01-26] MEDS ORDERED: IBUP400T22 PO (12:05)
[2017-01-26] MEDS ORDERED: AMOX1TAB10 PO (12:05)
--- NOTE | 2017-01-26 13:05 | OPR ---
DATE OF OPERATION: 01/24/2017 PREOPERATIVE DIAGNOSIS: Left facial abscess. POSTOPERATIVE DIAGNOSIS: Left facial abscess. OPERATIVE PROCEDURE: Incision and drainage of left facial abscess. SURGEON: Roc Cabrera MD ANESTHESIA: Local. INDICATIONS: Left facial infection. DESCRIPTION OF PROCEDURE: The patient was placed supine on the operating room table after infiltration of 10 mL of 1 percent lidocaine with epinephrine. The area was prepped and draped in sterile fashion. An 11 blade was used to make an incision in the left face. The abscess was drained. The wound was washed. The patient was returned to the care of the emergency department. Dictated By: Roc Cabrera MD /isaura/clotilde /Document#: [id number]
[2017-01-26 14:02] VITALS: BP 111/61; RESP 18
--- NOTE | 2017-01-26 15:41 | DS ---
Date/Time of Note Date/Time of Note DATE: 01/26/17 TIME: 15:38 Discharge Summary Admission/Discharge Info Admit Date/Time Jan 24, 2017 at 15:16 Discharge Date/Time Discharge Diagnosis Left facial abscess. Status post incision and drainage of left facial abscess. Nicotine abuse Homelessness Patient Condition: Stable Consults ,ENT ,ID Hospital Course This is a 36-year-old homeless female with a past medical history of possible substance abuse, current nicotine abuse, who presented to the emergency room for evaluation of worsening left facial swelling, pain and fever. Facial CT revealed periodontal abscess involving left maxillary tooth #13 which breaks through the maxillary cortex with surrounding soft tissue abscess measuring 19 1814 mm with large amount of surrounding cellulitis and reactive lymph nodes. She was treated with broad-spectrum antibiotics, pain control and IV fluids. In the emergency room, patient was evaluated by ENT speciality and performed incision and drainage of left facial abscess. She was then admitted. She was continued on IV antibiotics. Patient was evaluated by infectious disease specialist. She was also given adequate pain control. Swelling started to subside. She was started on a diet which was advanced to soft. Patient was able to tolerate diet. Patient was also evaluated by medical social consultant for substance abuse as well as homelessness situation. However, patient refused homelessness resources. She was provided with resources for tobacco cessation. There is no further fever, leukocytosis. She is also feeling better and back to her baseline. At this time, as per ID recommendation, patient needs 10 more days of oral antibiotics. There is no further inpatient workup indicated. Patient needs to see dentist as outpatient. Disposition: Patient will be discharged home as she refused homelessness resources. I also spoke with patient's sister. Patient needs to be seen by a dentist in the next 2 days. She was given prescription for Motrin and Augmentin to take at home. Patient and her family verbalized discharge instructions. Approximately 60 minutes was spent in coordinating the discharge on this patient. Case discussed with Jones Meds Active Scripts Ibuprofen* (Motrin*) 400 Mg Tab, 400 MG PO Q6H Y for PAIN, #30 TAB Prov:BRITODILIP V. PESTICIDE USE MEDICAL COORDINATOR 01/26/17 Amoxicillin/Potassium Clav (Amox-Clav 875-125 mg Tablet) 875-125 mg Tab, 1 TAB PO BID for 10 Days, #20 TAB Prov:BRITO,DILIP V. PESTICIDE USE MEDICAL COORDINATOR 01/26/17 Discontinued Scripts Albuterol Sulfate* (Ventolin HFA*) 18 Gm Hfa.aer.ad, 2 PUFF INHALATION Q4H, #1 INHALER Prov:DAYO RAE 04/27/16 Follow-up Plan HOME CARE INSTRUCTIONS: Special Diet: soft FOLLOW UP/APPOINTMENTS Follow-up Plan 1.Follow-up with a dentist in 2 days 2.Follow up with primary care physician in 1 week If you don't have one please let someone know, we can give you resources that may help you pick one. You may also call your insurance company to assign one to you. Review your medication list with your nurse before leaving and if you need new prescriptions please let your nurse know. I may have made changes to your home medications or given you new prescriptions, please let your primary doctor know as well. Stay compliant with your medications and report any side effects to your PCP or pharmacist. Return to the ER if you have any concerns and cannot reach your doctors or call your insurance company, they usually have a nurse that can help you. 3. Call 911 or go to the nearest emergency room if experiencing loss of consciousness, dizziness, chest pain, shortness of breath, vomiting/abdominal pain, speech difficulties, motor weakness or any unusual symptoms. Primary Care Provider Care Physician No Primary Pending Labs Laboratory Tests Test 01/26/17 04:35 01/26/17 13:39 Sodium Level 138mmol/L (135-144) Potassium Level 4.6mmol/L (3.5-5.1) Chloride Level 107mmol/L (97-110) Carbon Dioxide Level 26mmol/L (21-31) Anion Gap 10 (8-16) Blood Urea Nitrogen 10mg/dl (7-20) Creatinine 0.51mg/dl (0.44-1.00) Glucose Level 102mg/dl (70-220) Calcium Level 9.1mg/dl (8.4-10.2) Vancomycin Level Trough 10.0ug/ml (10.0-20.0) DILIP BRITO NP Jan 26, 2017 15:41
--- NOTE | 2017-01-27 03:15 | PN ---
DATE: 01/26/2017 SUBJECTIVE DATA: No acute changes overnight. The patient is alert, feels better, looks comfortable. No fevers. Temperature 98.6, pulse is 70, respirations 18, blood pressure 112/66, saturation 98 on room air. LABORATORY AND DIAGNOSTIC DATA: BUN 10, creatinine 0.51. ANTIMICROBIALS: Patient is on Vanco, Zosyn. PHYSICAL EXAMINATION: GENERAL: Well-developed, well-nourished, middle-aged woman who is alert, in no distress. HEENT: Head atraumatic, normocephalic. Sclerae anicteric. Buccal mucosa pink. NECK: Supple. CHEST: Rises symmetrical. Breath sounds clear. HEART: S1, S2. ABDOMEN: Soft, bowel sounds present. EXTREMITIES: Without cyanosis. ASSESSMENT: 1. Facial cellulitis secondary to periodontal abscess status post incision and drainage by Dr. Ludwig on January 24, 2017. 2. Substance abuse. 3. Possible homelessness. PLAN: The patient remains stable. Overall improving. Anticipate discharge on p.o. Augmentin, follow with ENT as an outpatient. Dictated By: Benjamin Fontanez NP /isaura/ /Document#: [id number]
--- NOTE | 2017-01-27 19:15 | RADRPT ---
Vent Rate: 78 bpm RR Interval: 0 msec SC Interval: 160 msec QRS Duration: 84 msec QT Interval: 378 msec QTC Interval: 430 msec P-R-T [place]: 49 - 47 - 36 degrees Normal sinus rhythm Normal ECG Electronically Signed By: Chandler Melo [id number]
== END 2017-01-26 17:00 | disposition home or self-care (01) | DRG 603 ==
LOC: E/R 06:54 → PP2 15:16
PROVIDERS: ADMIT Internal Medicine; ATTEND Internal Medicine
PROC: 0H91XZZ Drainage of Face Skin, External Approach (ICD-10-PCS; principal; 2017-01-24)
DX: L03.211 Cellulitis of face (principal); R65.10 Systemic inflammatory response syndrome (SIRS) of non-infectious origin without acute organ dysfunction; K05.213 Aggressive periodontitis, localized, severe; E87.6 Hypokalemia; F15.10 Other stimulant abuse, uncomplicated; F17.200 Nicotine dependence, unspecified, uncomplicated; Z59.0 Homelessness
CPT/HCPCS: 70486; 80048; 80053; 80061; 80202; 81003; 82306; 82728; 83036; 83540; 83735; 84100; 84443; 84703; 85025; 86704; 86709; 86803; 87081; 87340; 92526; 92610; 93005; 96374; 96375; J2270; J2543; J3370; J7030; J7050; Q9967

== ENCOUNTER 2017-03-11 00:22 | Inpatient (IN) | payer MEDICAID, OTHER ==
[~2017-03-11] VITALS: Ht 167.6 cm; Wt 60.1 kg
[~2017-03-11 00:22] MED LIST changes: -ALBU18HF INHALATION; +AMOX1TAB10 PO; +IBUP400T22 PO
[2017-03-11 02:39] LABS: BASOPHILS % 0.3 % (0.0-2.0); EOSINOPHILS # 0.1 10^3/ul (0.0-0.5); EOSINOPHILS % 1.2 % (0.0-7.0); HEMOGLOBIN 10.7 g/dl (12.0-16.0); LYMPHOCYTES # 1.3 10^3/ul (0.8-2.9); LYMPHOCYTES % 12.1 % (15.0-51.0); MEAN CORPUSCULAR HGB CONC 32.4 g/dl (32.0-37.0); MEAN CORPUSCULAR VOLUME 92.4 fl (82.0-101.0); MEAN PLATELET VOLUME 10.2 fl (7.4-10.4); MONOCYTE # 0.7 10^3/ul (0.3-0.9); MONOCYTES % 6.5 % (0.0-11.0); NEUTROPHIL # 8.3 10^3/ul (1.6-7.5); NEUTROPHILS % 79.6 % (39.0-77.0); PLATELET COUNT 258 10^3/UL (140-415); RED BLOOD COUNT 3.57 10^6/ul (4.20-5.40); RED CELL DISTRIBUTION WIDTH 13.5 % (11.5-14.5); WHITE BLOOD COUNT 10.4 10^3/ul (4.8-10.8)
[2017-03-11 02:54] LABS: ADD UMIC YES; UR ASCORBIC ACID 40 mg/dL (NEGATIVE); UR BACTERIA FEW /HPF (NONE SEEN); UR BILIRUBIN (Dip) NEGATIVE (NEGATIVE); UR BLOOD (Dip) NEGATIVE (NEGATIVE); UR CLARITY SLIGHTLY CLOUDY (CLEAR); UR COLOR YELLOW (YELLOW); UR GLUCOSE (Dip) NEGATIVE (NEGATIVE); UR KETONES (Dip) NEGATIVE (NEGATIVE); UR LEUKOCYTE ESTERASE (Dip) 1+ Leu/ul (NEGATIVE); UR MUCUS FEW /HPF (NONE SEEN); UR NITRITE (Dip) NEGATIVE (NEGATIVE); UR RBC 1 /HPF (0-5); UR SPECIFIC GRAVITY (Dip) 1.028 (1.003-1.030); UR SQUAMOUS EPITHELIAL CELL MODERATE /HPF (FEW); UR TOTAL PROTEIN (Dip) NEGATIVE (NEGATIVE); UR UROBILINOGEN (Dip) 2+ mg/dL (NEGATIVE)
--- NOTE | 2017-03-11 02:55 | ERD ---
ER Documentation Chief Complaint Date/Time DATE: 03/11/17 TIME: 02:50 Chief Complaint L facial swelling & pain, claims she has infected dental issues months ago HPI 36-year-old female presents here in emergency department for complaints of left facial swelling and pain that started few months ago, patient was admitted to the hospital, got treatment, supposed to have the surgery and supposed to see a dentist. Patient has not followed up. Patient started to have left facial swelling and pain again worsening pain, and the last 3 days, throbbing pain, 6/ 10 scale, not better or worse with anything. Patient did not take any medications to help with symptoms. Patient denies any fever or chills. ROS All systems reviewed and are negative except as per history of present illness. Medications Home Meds Active Scripts Ibuprofen* (Motrin*) 400 Mg Tab, 400 MG PO Q6H Y for PAIN, #30 TAB Prov:BRITO,DILIP V. CLAIMS TECHNICIAN 01/26/17 Amoxicillin/Potassium Clav (Amox-Clav 875-125 mg Tablet) 875-125 mg Tab, 1 TAB PO BID for 10 Days, #20 TAB Prov:DILIP BRITO V. CLAIMS TECHNICIAN 01/26/17 Allergies Allergies: Coded Allergies: No Known Allergy (Unverified , 01/24/17) PMhx/Soc History of Surgery: Yes (Ovarian CA) Anesthesia Reaction: No Hx Neurological Disorder: Yes (Hx: migraines) Hx Respiratory Disorders: Yes (Hx: asthma, ) Hx Cardiac Disorders: Yes (Hx: heart attack 2013) Hx Psychiatric Problems: Yes (Hx: mood disorders) Hx Miscellaneous Medical Probl: No Hx Alcohol Use: No Hx Substance Use: Yes (meth) Hx Tobacco Use: Yes Smoking Status: Current every day smoker FmHx Family History: No coronary disease, No diabetes, No other Physical Exam Vitals Vital Signs Date Time Temp Pulse Resp B/P Pulse Ox O2 Delivery O2 Flow Rate FiO2 03/11/17 00:39 98.8 89 18 127/75 100 Physical Exam GENERAL: The patient is well developed and appropriate for usual state of health, in no apparent distress. HEENT: Atraumatic. Ears: Normal tympanic membrane, no erythema or bulging. No ear canal swelling. No ear discharge. Nose: normal nasal turbinates, no erythema or swelling. Normal nasal discharge. Throat: oropharynx clear. No tonsillar swelling or tonsillar exudates. No lymphadenopathy. Noted facial swelling noted, tenderness on palpation. CHEST: Clear to auscultation bilaterally. There are no rales, wheezes or rhonchi. HEART: Regular rate and rhythm. No murmurs, clicks, rubs or gallops. No S3 or S4. ABDOMEN: Soft, nontender and nondistended. Good bowel sounds. No rebound or guarding. No gross peritonitis. No gross organomegaly or masses. No Foster sign or McBurney point tenderness. BACK: No midline or flank tenderness. EXTREMITIES: Equal pulses bilaterally. There is no peripheral clubbing, cyanosis or edema. No focal swelling or erythema. Full range of motion. Grossly neurovascularly intact. NEURO: Alert and oriented. Cranial nerves 2-12 intact. Motor strength in all 4 extremities with 5/5 strength. Sensation grossly intact. Normal speech and gait. SKIN: There is no apparent rash or petechia. The skin is warm and dry. HEMATOLOGIC AND LYMPHATIC: There is no evidence of excessive bruising or lymphedema. No gross cervical, axillary, or inguinal lymphadenopathy. Result Diagram: 03/11/17 0200 03/11/17 0200 Results 24 hrs Laboratory Tests Test 03/11/17 02:00 03/11/17 02:20 White Blood Count 10.410^3/ul Red Blood Count 3.5710^6/ul Hemoglobin 10.7g/dl Hematocrit 33.0% Mean Corpuscular Volume 92.4fl Mean Corpuscular Hemoglobin 30.0pg Mean Corpuscular Hemoglobin Concent 32.4g/dl Red Cell Distribution Width 13.5% Platelet Count 16894^3/UL Mean Platelet Volume 10.2fl Neutrophils % 79.6% Lymphocytes % 12.1% Monocytes % 6.5% Eosinophils % 1.2% Basophils % 0.3% Nucleated Red Blood Cells % 0.0/100WBC Neutrophils # 8.310^3/ul Lymphocytes # 1.310^3/ul Monocytes # 0.710^3/ul Eosinophils # 0.110^3/ul Basophils # 0.010^3/ul Nucleated Red Blood Cells # 0.010^3/ul Sodium Level 138mmol/L Potassium Level 3.6mmol/L Chloride Level 105mmol/L Carbon Dioxide Level 27mmol/L Anion Gap 10 Blood Urea Nitrogen 12mg/dl Creatinine 0.59mg/dl Glucose Level 106mg/dl Lactic Acid Level 0.8mmol/L Calcium Level 9.1mg/dl Total Bilirubin 0.4mg/dl Direct Bilirubin 0.00mg/dl Indirect Bilirubin 0.4mg/dl Aspartate Amino Transf (AST/SGOT) 27IU/L Alanine Aminotransferase (ALT/SGPT) 28IU/L Alkaline Phosphatase 100IU/L Total Protein 7.4g/dl Albumin 3.8g/dl Globulin 3.60g/dl Albumin/Globulin Ratio 1.05 Lipase 48U/L Urine Color YELLOW Urine Clarity SLIGHTLY CLOUDY Urine pH 5.0 Urine Specific [place] 1.028 Urine Ketones NEGATIVEmg/dL Urine Nitrite NEGATIVEmg/dL Urine Bilirubin NEGATIVEmg/dL Urine Urobilinogen 2+mg/dL Urine Leukocyte Esterase 1+Nnamdi/ul Urine Microscopic RBC 1/HPF Urine Microscopic WBC 7/HPF Urine Squamous Epithelial Cells MODERATE/HPF Urine Bacteria FEW/HPF Urine Mucus FEW/HPF Urine Hemoglobin NEGATIVEmg/dL Urine Glucose NEGATIVEmg/dL Urine Total Protein NEGATIVEmg/dl Current Medications Medications (Trade) Dose Ordered Sig/Andie Route PRN Reason Start Time Stop Time Status Last Admin Dose Admin Sodium Chloride (NS) 100 ml @ ud STK-MED ONCE .ROUTE 03/11/17 03:04 03/11/17 03:05 DC 03/11/17 03:13 Iohexol (Omnipaque 300mg/ ml) 150 ml STK-MED ONCE .ROUTE 03/11/17 03:04 03/11/17 03:05 DC 03/11/17 03:13 ROCEDURE: CT facial bones with contrast CLINICAL INDICATION: Left facial swelling, evaluate for abscess TECHNIQUE: A CT of the facial bones was performed on a GE 64-slice CT scanner utilizing high-resolution axial images. 100 cc of Omnipaque-300 was intravenously administered. Sagittal, coronal, and multiplanar reformatted images were made. The CTDIvol is 53.7 mGy and the DLP is 1000.32 mGy-cm. One or more of the following dose reduction techniques were used: automated exposure control, adjustment of the mA and/or kV according to patient size, or use of iterative reconstruction technique. COMPARISON: CT HEAD 01/24/2017 FINDINGS: The exam is degraded by dental metallic streak artifact. There is persistent extensive left facial soft tissue swelling with soft tissue inflammatory changes over the left maxilla and mandible.. The previously noted thick-walled fluid collection or phlegmon appears mildly increased in size measuring approximately 2.4 x 1.8 x 2.9 cm. The measurement is suboptimal due to ill- defined borders. Focal lucency about the left maxillary tooth ( series 4, image 129) is unchanged. Enlarged cervical lymph nodes appear mildly decreased in size. Old fracture of the right lamina papyracea. The orbital bones and contents are intact. There is mucosal thickening in the ethmoid, sphenoid and maxillary sinuses, greater on the left. There are degenerative changes in the cervical spine. No vascular abnormality is seen. IMPRESSION: Mildly increased in size of the thick-walled periodontal abscess or phlegmon involving left maxillary tooth. Left facial swelling, inflammatory changes and reactive lymph nodes. Chronic sinusitis, increase in the left maxillary sinus. Physician Mike Date Time Electronically viewed and signed by Usman Ortiz Physician on 03/11/2017 05: 06 CS/ CC: COLLINS BROWN NP Procedures/MDM Medical decision making: Patient has a left facial abscess most likely is from the periodontal disease that she has, patient had incision and drainage done before, had re-infection of affected area. I discussed this case with my attending physician, Dr Lake, patient will be admitted to the hospital for further evaluation and management, possible antibiotic treatment and ENT evaluation. Departure Diagnosis: Primary Impression: Facial abscess Condition: Stable COLLINS BROWN NP Mar 11, 2017 02:55
[2017-03-11 02:59] LABS: ALBUMIN 3.8 g/dl (3.3-4.9); ALBUMIN/GLOBULIN RATIO 1.05; BILIRUBIN,INDIRECT 0.4 mg/dl (0-1.1); BILIRUBIN,TOTAL 0.4 mg/dl (0.2-1.3); CALCIUM 9.1 mg/dl (8.4-10.2); CREATININE 0.59 mg/dl (0.44-1.00); POTASSIUM 3.6 mmol/L (3.5-5.1); TOTAL PROTEIN 7.4 g/dl (6.1-8.1)
[2017-03-11] MEDS ORDERED: IOHEXOL 300MG/ML 150 ML BTL ONE (03:04)
[2017-03-11] MEDS ORDERED: SOD CHLORIDE 0.9% 100 ML ONE (03:04)
--- NOTE | 2017-03-11 05:07 | RADRPT ---
PROCEDURE: CT facial bones with contrast CLINICAL INDICATION: Left facial swelling, evaluate for abscess TECHNIQUE: A CT of the facial bones was performed on a GE 64-slice CT scanner utilizing high-resol ution axial images. 100 cc of Omnipaque-300 was intravenously administered. Sagittal, coronal, and multiplanar reformatted images were made. The CTDIvol is 53.7 mGy and the DLP is 1000.32 mGy-cm. O ne or more of the following dose reduction techniques were used: automated exposure control, adjustm ent of the mA and/or kV according to patient size, or use of iterative reconstruction technique. COMPARISON: CT HEAD 01/24/2017 FINDINGS: The exam is degraded by dental metallic streak artifact. There is persistent extensive left facial s oft tissue swelling with soft tissue inflammatory changes over the left maxilla and mandible.. The p reviously noted thick-walled fluid collection or phlegmon appears mildly increased in size measuring approximately 2.4 x 1.8 x 2.9 cm. The measurement is suboptimal due to ill-defined borders. Focal lucency about the left maxillary tooth ( series 4, image 129) is unchanged. Enlarged cervical ly mph nodes appear mildly decreased in size. Old fracture of the right lamina papyracea. The orbital bones and contents are intact. There is mucosal thickening in the ethmoid, sphenoid and maxillary sinuses, greater on the left. There are degenerative changes in the cervical spine. No va scular abnormality is seen. IMPRESSION: Mildly increased in size of the thick-walled periodontal abscess or phlegmon involving left maxillar y tooth. Left facial swelling, inflammatory changes and reactive lymph nodes. Chronic sinusitis, increase in the left maxillary sinus. Physician Mike Date Time Electronically viewed and signed by Physician Mike on 03/11/2017 05:06 EVELYN/
[2017-03-11] MEDS ORDERED: SOD CHLORIDE 0.9% 1,000 ML IV SCH (05:48)
[2017-03-11] MEDS ORDERED: ACETAMINOPHEN 325 MG TAB PO PRN ×2 (06:00→09:00)
[2017-03-11] MEDS ORDERED: ONDANSETRON 4 MG INJ IV PRN ×2 (06:00→09:00)
[2017-03-11] MEDS: SOD CHLORIDE 0.9% 1,000 ML IV SCH ×4 (08:57→23:44)
--- NOTE | 2017-03-11 09:04 | HP ---
Date/Time of Note Date/Time of Note DATE: 03/11/17 TIME: 09:04 Assessment/Plan VTE Prophylaxis VTE Prophylaxis Intervention: SCD's Assessment/Plan Assessment/Plan 1. Left facial swelling secondary to dental abscess - CT face showed persistent extensive left facial soft tissue swelling with soft tissue inflammatory changes over the left maxilla and mandible.. The previously noted thick-walled fluid collection or phlegmon appears mildly increased in size measuring approximately 2.4 x 1.8 x 2.9 cm. The measurement is suboptimal due to ill-defined borders. Focal lucency about the left maxillary tooth ( series 4, image 129) is unchanged. Enlarged cervical lymph nodes appear mildly decreased in size. - Called placed to ENT as patient was seen by Dr. Cabrera during last admission - Discussed with sister at bedside that there is no inhouse oral surgeon and will need to treat the swelling and have her follow up once stable and discharged with oral surgery - ID on board and consultation appreciated - Started patient on Unasyn for now - Blood cultures drawn 2. Substance abuse - Meth user and last used on Wednesday. Will monitor for withdrawal 3. Tobacco abuse - Nicotine patch ordered 4. Homelessness - SW spoke with patient during last patient and she refused all services. When condition improves, will readdress with patient 5. Hypokalemia - replaced 6. Iron deficiency anemia - will start iron supplements 7. Diet - soft diet 8. Code status - Full Code 9. DVT ppx - SCD 10. Disposition - Admit to Med/Surg for further evaluation HPI/ROS Admit Date/Time Admit Date/Time 03/11/17 Hx of Present Illness 36 yo F with PMH polysubstance abuse including Meth and admits to last using Wednesday/Wednesday, prediabetes, and "spinal inflammation" presented to ED with 3 days of worsening facial swelling. She describes the pain as sharp and pressure like, with nausea no vomiting, fevers, chills, and difficulty breathing. She states she is hungry but has been having difficulty eating. Sister at bedside and states she did follow up with the dentist but was referred to oral surgeon instead. Patient lives on the streets and patients sister was unaware of her previous discharge so follow up was delayed. Patient presented to [facility] last month for similar issues. Per records she was found to have periodontal abscess involving left maxillary tooth #13 which breaks through the maxillary cortex with surrounding soft tissue abscess measuring 256853 mm with large amount of surrounding cellulitis and reactive lymph nodes. She was treated with broad-spectrum antibiotics, pain control and IV fluids. She was seen by Dr. Cabrera in the ED where I&D of facial abscess was performed. She was continued on IV antibiotics and seen by infectious disease specialist. Swelling started to subside and she was discharged home on PO antibiotics. Patient was also evaluated by social insurance specialist for substance abuse as well as homelessness situation. However, patient refused homelessness resources. ROS All 12 systems reviewed and pertinent positives per HPI. All others reviewed and are negative. Constitutional: chills, febrile, nausea, poor po Eyes: visual change ENT: dysphagia, other (swelling left side of face for past 3 days), pain Respiratory: shortness of breath, No cough, No sputum, No wheezing Cardiovascular: No chest pain, No edema, No lightheadedness, No palpitations Gastrointestinal: No constipation, No diarrhea, No nausea, No pain, No vomiting Genitourinary: No bleeding, No discharge, No flank pain Musculoskeletal: back pain, restricted range of motion Skin: No erythema, No pruritis, No rash Neurologic: No dizziness, No focal-weakness, No headache Endocrine: other (prediabetes) Lymphatic: no complaints Psychological: nl mood/affect Immunologic: no complaints PMH/Family/Social Past Medical History Medical History: diabetes ((prediabetic)), other ("spinal inflammation") Past Surgical History Past Surgical Hx: other (hernia repair) Family History Significant Family History: no pertinent family hx Social History Alcohol Use: none Smoking Status: Current every day smoker Drug Use: other (meth, last used Wednesday) Exam/Review of Systems Vital Signs Vitals Vital Signs Date Time Temp Pulse Resp B/P Pulse Ox O2 Delivery O2 Flow Rate FiO2 03/11/17 06:08 98.0 81 16 121/81 98 Room Air Exam Constitutional: alert, distress, oriented, other (disheveled, poor hygiene), well developed Psych: nl mood/affect Head: No hematomas, No lacerations Eyes: other (facial swelling impairing vision left eye) ENMT: other (significant swelling of left maxiallary area and upper lip. 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, nl mental status, nl speech, numbness (right upper extremity) Skin: nl turgor, other, No ecchymosis, No laceration Lymph: nl lymph nodes Labs Result Diagram: 03/11/1719903/11/17199 Medications Medications Current Medications Sodium Chloride 1,000 ml @ 80 mls/hr [id number] IV Last administered on t 05:48; Admin Dose 80 MLS/HR; Start 03/11/17 at 05:48; Stop 03/11/17 at 18 :17 Sodium Chloride (NS) 1,000 ml @ 75 mls/hr [id number] IV ; Start 03/11/17 at 08:57 ; Status UNV Ondansetron HCl (Zofran Inj) 4 mg Q6H PRN IV NAUSEA AND/OR VOMITING; Start at 09:00; Status UNV Acetaminophen (Tylenol Tab) 650 mg Q6H PRN PO PAIN LEVEL 1-3 OR FEVER; Start 03/11/17 at 09:00; Status UNV Acetaminophen/ Hydrocodone Bitart ([place] (5/325)) 1 tab Q6H PRN PO MODERATE PAIN LEVEL 4-6; Start 03/11/17 at 09:00; Status UNV Morphine Sulfate (morphine) 2 mg Q4H PRN IV SEVERE PAIN LEVEL 7-10; Start at 09:00; Status UNV Docusate Sodium (Colace) 100 mg Q12H PRN PO CONSTIPATION; Start 03/11/17 at 09 :00; Status UNV Magnesium Hydroxide 30 ml 30 ml DAILY PRN PO CONSTIPATION; Start 03/11/17 at 09:00; Status UNV Ampicillin Sodium/ Sulbactam Sodium (Unasyn 3gm/NS (Pmx)) 100 ml @ 100 mls/hr Q6 IVPB ; Start 03/11/17 at 09:30; Status UNV Chlorhexidine Gluconate (Peridex) 15 ml Q12 MT ; Start 03/11/17 at 09:30; Status UNV Procedures Procedures PROCEDURE: CT facial bones with contrast CLINICAL INDICATION: Left facial swelling, evaluate for abscess TECHNIQUE: A CT of the facial bones was performed on a GE 64-slice CT scanner utilizing high-resolution axial images. 100 cc of Omnipaque-300 was intravenously administered. Sagittal, coronal, and multiplanar reformatted images were made. The CTDIvol is 53.7 mGy and the DLP is 1000.32 mGy-cm. One or more of the following dose reduction techniques were used: automated exposure control, adjustment of the mA and/or kV according to patient size, or use of iterative reconstruction technique. COMPARISON: CT HEAD 01/24/2017 FINDINGS: The exam is degraded by dental metallic streak artifact. There is persistent extensive left facial soft tissue swelling with soft tissue inflammatory changes over the left maxilla and mandible.. The previously noted thick-walled fluid collection or phlegmon appears mildly increased in size measuring approximately 2.4 x 1.8 x 2.9 cm. The measurement is suboptimal due to ill- defined borders. Focal lucency about the left maxillary tooth ( series 4, image 129) is unchanged. Enlarged cervical lymph nodes appear mildly decreased in size. Old fracture of the right lamina papyracea. The orbital bones and contents are intact. There is mucosal thickening in the ethmoid, sphenoid and maxillary sinuses, greater on the left. There are degenerative changes in the cervical spine. No vascular abnormality is seen. IMPRESSION: Mildly increased in size of the thick-walled periodontal abscess or phlegmon involving left maxillary tooth. Left facial swelling, inflammatory changes and reactive lymph nodes. Chronic sinusitis, increase in the left maxillary sinus. ADELFO BELL MD Mar 11, 2017 09:04
[2017-03-11] MEDS: NICOTINE (21 MG/24 HR) PATCH TRANSDERM SCH (09:30)
[2017-03-11] MEDS: CHLORHEXIDINE GLUCONATE 15 ML UD CUP MT SCH ×2 (09:30→20:15)
[2017-03-11] MEDS ORDERED: POTASSIUM CHLORIDE 250 ML IVPB ONE (09:30)
[2017-03-11] MEDS: AMPICILLIN/SULB 3 GM/NS (PMX) 100 ML IVPB SCH ×3 (09:30→22:00)
[2017-03-11] MEDS: morphine 2 MG INJ IV PRN ×2 (10:34→18:32)
--- NOTE | 2017-03-11 14:17 | CONS ---
DATE OF ADMISSION: 03/11/2017 DATE OF CONSULTATION: 03/11/2017 TYPE OF CONSULTATION: Infectious Disease. REASON FOR CONSULTATION: Antibiotic management. HISTORY OF PRESENT ILLNESS: Terra Hu is a 36-year-old female who presents to the emergency room with facial cellulitis secondary to dental abscess. The patient has history of polysubstance abuse including methadone. She presented to the emergency room with 3 days of worsening facial swelling. The pain is sharp and pressure like. She is hungry, but has difficulty eating. She was referred t o an oral surgeon. The patient is homeless, lives [place] the [address]. She presented to [facility] last month for similar issues and was found to have a periodontal abscess involving left maxilla ry tooth #13 which breaks through the maxillary cortex with surrounding soft tissue abscess measurin g 19 x 18 x 14 mm with surrounding cellulitis and reactive lymph nodes. She was treated with broad spectrum antibiotics. She was seen by Dr. Cabrera in the emergency room where an I and D of facial abscess was performed. She was continued on IV antibiotics. Swelling started to subside. She was discharged home on oral antibiotics. She now returns. PAST SURGICAL HISTORY: She is prediabetic. She has a history of hernia repair in the past. FAMILY HISTORY: Noncontributory. SOCIAL HISTORY: She is an everyday smoker. She uses methadone, last used 3 days ago. ALLERGIES: NONE. MEDICATIONS: Per chart. REVIEW OF SYSTEMS: Noncontributory. PHYSICAL EXAMINATION: GENERAL: The patient is a disheveled with poor hygiene. SKIN: Without generalized rash. HEENT: No hematomas. ENT: She has significant swelling of the left maxillary area. She has facia l swelling impairing revision of left eye. She has no discharge or drainage. NECK: Supple. LYMPH NODES: None palpable. CHEST: Decreased breath sounds at the bases. HEART: Without murmur or gallop. ABDOMEN: Soft, nontender, without organosplenomegaly or masses. EXTREMITIES: Without cyanosis, clubbing or edema. RECTAL AND GENITAL: Deferred. NEUROLOGIC: She has some numbness in the right upper extremity. ANCILLARY LABORATORY DATA: Her white count 10.4, H and H of 10.7 and 33, platelet count 258,000. B UN and creatinine 12/0.59, glucose of 106. IMAGING STUDIES: A CT scan showed persistent extensive left facial soft tissue swelling with soft t issue inflammation, inflammatory changes of the left maxilla and mandible. Previous noted thick wal led fluid collection or phlegmon appearance mildly increased in size measuring 2.4/1.8 x 2.9. Focal lucency about the left maxillary tooth. Enlarged cervical lymph nodes appear mildly decreased in s ize. IMPRESSION AND PLAN: An ENT consultation was requested with Dr. Cabrera. The patient was started o n Unasyn. Blood cultures were drawn and infectious disease was obviously consulted. We will contin ue her on Unasyn. She needs drainage of the site. She had blood cultures drawn and a lactic acid, urinalysis and urine culture. I will dictate my findings to the hospitalist and to Dr. Cabrera. Dictated By: ALETHA ANDINO MD, JD/BRANDON Conf#: [id number] DID#: [id number]
[2017-03-11] MEDS ORDERED: OXYCODONE/ACETAMINOPHEN (5/325) TAB PO ONE (16:30)
[2017-03-11 17:45] VITALS: TEMP 98.3
[2017-03-11 19:34] VITALS: BP 106/63; RESP 16
[2017-03-11 21:42] VITALS: Ht 167.6 cm; Wt 60.1 kg
[2017-03-12 01:53] VITALS: BP 119/70; RESP 16
[2017-03-12] MEDS: AMPICILLIN/SULB 3 GM/NS (PMX) 100 ML IVPB SCH ×6 (02:05→23:00)
[2017-03-12 06:09] LABS: BASOPHILS % 0.4 % (0.0-2.0); EOSINOPHILS # 0.1 10^3/ul (0.0-0.5); EOSINOPHILS % 1.1 % (0.0-7.0); HEMATOCRIT 36.1 % (37.0-47.0); HEMOGLOBIN 11.3 g/dl (12.0-16.0); LYMPHOCYTES # 1.3 10^3/ul (0.8-2.9); LYMPHOCYTES % 14.9 % (15.0-51.0); MEAN CORPUSCULAR HEMOGLOBIN 29.3 pg (29.0-33.0); MEAN CORPUSCULAR HGB CONC 31.3 g/dl (32.0-37.0); MEAN CORPUSCULAR VOLUME 93.5 fl (82.0-101.0); MEAN PLATELET VOLUME 10.5 fl (7.4-10.4); MONOCYTE # 0.5 10^3/ul (0.3-0.9); NEUTROPHIL # 6.6 10^3/ul (1.6-7.5); NEUTROPHILS % 77.2 % (39.0-77.0); PLATELET COUNT 252 10^3/UL (140-415); RED BLOOD COUNT 3.86 10^6/ul (4.20-5.40); RED CELL DISTRIBUTION WIDTH 13.8 % (11.5-14.5); WHITE BLOOD COUNT 8.6 10^3/ul (4.8-10.8)
[2017-03-12 06:36] LABS: ALBUMIN 3.7 g/dl (3.3-4.9); ALBUMIN/GLOBULIN RATIO 1.12; BILIRUBIN,INDIRECT 0.3 mg/dl (0-1.1); BILIRUBIN,TOTAL 0.3 mg/dl (0.2-1.3); CALCIUM 8.8 mg/dl (8.4-10.2); CREATININE 0.5 mg/dl (0.44-1.00); POTASSIUM 3.8 mmol/L (3.5-5.1)
[2017-03-12 08:00] VITALS: BP 111/75; RESP 19
--- NOTE | 2017-03-12 10:56 | PN ---
Date/Time of Note Date/Time of Note DATE: 03/12/17 TIME: 10:55 Assessment/Plan VTE Prophylaxis VTE Prophylaxis Intervention: SCD's Lines/Catheters IV Catheter Type (from Nrs): Peripheral IV Urinary Cath still in place: No Assessment/Plan Assessment/Plan 1. Left facial swelling secondary to dental abscess - Swelling has been improving with IV antibiotics and states feels as if it has been draining as well - CT face showed persistent extensive left facial soft tissue swelling with soft tissue inflammatory changes over the left maxilla and mandible.. The previously noted thick-walled fluid collection or phlegmon appears mildly increased in size measuring approximately 2.4 x 1.8 x 2.9 cm. The measurement is suboptimal due to ill-defined borders. Focal lucency about the left maxillary tooth ( series 4, image 129) is unchanged. Enlarged cervical lymph nodes appear mildly decreased in size. -ENT consulted and awaiting recommendations - ID on board and consultation appreciated. Will continue on Unasyn - Blood cultures show no growth today - Discussed with sister there is no inhouse oral surgeon and will need to treat the swelling and have her follow up once stable and discharged with oral surgery 2. Substance abuse - Meth user and last used on Wednesday. Will monitor for withdrawal symptoms - Currently stable 3. Tobacco abuse - Nicotine patch 4. Homelessness - SW spoke with patient during last patient and she refused all services. When condition improves, will readdress with patient 5. Hypokalemia - stable 6. Iron deficiency anemia - on iron supplements. Doing well 7. Diet - c/o hungry. Will start mechanical soft and advance as tolerated. Subjective 24 Hr Interval Summary Free Text/Dictation Patient states swelling has improved and in no acute distress. Able to open left eye and also has been intermittently suctioning since feels as if dental abscess is draining. No acute overnight events. Exam/Review of Systems Vital Signs Vitals Vital Signs Date Time Temp Pulse Resp B/P Pulse Ox O2 Delivery O2 Flow Rate FiO2 03/12/17 08:00 98.1 80 19 111/75 99 03/11/17 18:30 Room Air Intake and Output 03/11/17 03/11/17 03/12/17 15:00 23:00 07:00 Intake Total 350 ml 200 ml 200 ml Output Total 1200 ml Balance 350 ml 200 ml -1000 ml Exam Constitutional: alert, distress, oriented, disheveled, poor hygiene Head: No hematomas, No lacerations Eyes: improving facial swelling and able to open left eye ENMT: improving swelling of left maxillary area and upper lip. erythema and warmth Neck: non-tender, supple Respiratory: clear to auscultation, No crackles/rales, No wheezing Cardiovascular: regular rate and rhythm, No murmurs/extra sounds, No systolic murmur Gastrointestinal: bowel sounds, non-tender, soft, No distended, No mass Genitourinary - Female: No CVA tenderness Musculoskeletal: nl extremities to inspection, No spine non-tender Extremities: normal pulses, No clubbing, No cyanosis, No edema Neurological: MERCHANDISER II-XII intact, nl mental status, nl speech Results Result Diagram: 03/12/17 0508 03/12/17 0508 Results 24 hrs Laboratory Tests Test 03/11/17 19:34 03/12/17 05:08 Bedside Glucose 114 White Blood Count 8.6 Red Blood Count 3.86 L Hemoglobin 11.3 L Hematocrit 36.1 L Mean Corpuscular Volume 93.5 Mean Corpuscular Hemoglobin 29.3 Mean Corpuscular Hemoglobin Concent 31.3 L Red Cell Distribution Width 13.8 Platelet Count 252 Mean Platelet Volume 10.5 H Neutrophils % 77.2 H Lymphocytes % 14.9 L Monocytes % 6.0 Eosinophils % 1.1 Basophils % 0.4 Nucleated Red Blood Cells % 0.0 Neutrophils # 6.6 Lymphocytes # 1.3 Monocytes # 0.5 Eosinophils # 0.1 Basophils # 0.0 Nucleated Red Blood Cells # 0.0 Sodium Level 139 Potassium Level 3.8 Chloride Level 106 Carbon Dioxide Level 25 Anion Gap 12 Blood Urea Nitrogen 5 L Creatinine 0.50 Glucose Level 89 Calcium Level 8.8 Magnesium Level 2.0 Total Bilirubin 0.3 Direct Bilirubin 0.00 Indirect Bilirubin 0.3 Aspartate Amino Transf (AST/SGOT) 22 Alanine Aminotransferase (ALT/SGPT) 25 Alkaline Phosphatase 99 Total Protein 7.0 Albumin 3.7 Globulin 3.30 H Albumin/Globulin Ratio 1.12 Medications Medications Current Medications Sodium Chloride (NS) 1,000 ml @ 75 mls/hr [id number] IV ; Start 03/11/17 at 08:57 Ondansetron HCl (Zofran Inj) 4 mg Q6H PRN IV NAUSEA AND/OR VOMITING; Start at 09:00 Acetaminophen (Tylenol Tab) 650 mg Q6H PRN PO PAIN LEVEL 1-3 OR FEVER; Start 03/11/17 at 09:00 Acetaminophen/ Hydrocodone Bitart ([place] (5/325)) 1 tab Q6H PRN PO MODERATE PAIN LEVEL 4-6; Start 03/11/17 at 09:00 Morphine Sulfate (morphine) 2 mg Q4H PRN IV SEVERE PAIN LEVEL 7-10 Last administered on 03/11/17 18:32; Admin Dose 2 MG; Start 03/11/17 at 09:00 Docusate Sodium (Colace) 100 mg Q12H PRN PO CONSTIPATION; Start 03/11/17 at 09 :00 Magnesium Hydroxide 30 ml 30 ml DAILY PRN PO CONSTIPATION; Start 03/11/17 at 09:00 Ampicillin Sodium/ Sulbactam Sodium (Unasyn 3gm/NS (Pmx)) 100 ml @ 100 mls/hr Q6 IVPB Last administered on 03/12/17 06:00; Admin Dose 100 MLS/HR; Start at 09:30 Chlorhexidine Gluconate (Peridex) 15 ml Q12 MT Last administered on 03/11/17 20:15; Admin Dose 15 ML; Start 03/11/17 at 09:30 Nicotine 1 patch 1 patch DAILY TRANSDERM Last administered on 03/11/17 09:30 ; Admin Dose 1 PATCH; Start 03/11/17 at 09:30 Sodium Chloride (NS) 1,000 ml @ 80 mls/hr [id number] IV Last administered on 23:44; Admin Dose 80 MLS/HR; Start 03/12/17 at 00:00 ADELFO BELL MD Mar 12, 2017 10:55
[2017-03-12 14:00] VITALS: BP 108/94; RESP 20
[2017-03-12] MEDS: NICOTINE (21 MG/24 HR) PATCH TRANSDERM SCH (15:00)
[2017-03-12] MEDS: CHLORHEXIDINE GLUCONATE 15 ML UD CUP MT SCH ×2 (15:00→22:55)
[2017-03-12] MEDS: SOD CHLORIDE 0.9% 1,000 ML IV SCH ×2 (15:01→15:03)
[2017-03-12] MEDS: morphine 2 MG INJ IV PRN ×2 (15:08→22:55)
[2017-03-12] MEDS ORDERED: LORAZEPAM 2 MG INJ IV PRN (16:00)
[2017-03-12 19:35] VITALS: BP 115/71; RESP 20
[2017-03-12 20:00] VITALS: BP 115/71; PULSE 77; RESP 20
[2017-03-13] MEDS: SOD CHLORIDE 0.9% 1,000 ML IV SCH ×2 (00:57→14:17)
[2017-03-13 01:53] VITALS: BP 114/71; RESP 20
[2017-03-13] MEDS: morphine 2 MG INJ IV PRN ×2 (05:10→20:58)
[2017-03-13] MEDS: AMPICILLIN/SULB 3 GM/NS (PMX) 100 ML IVPB SCH ×3 (05:10→17:44)
[2017-03-13 06:50] LABS: BASOPHILS % 0.6 % (0.0-2.0); EOSINOPHILS # 0.2 10^3/ul (0.0-0.5); EOSINOPHILS % 3.5 % (0.0-7.0); HEMATOCRIT 38.3 % (37.0-47.0); HEMOGLOBIN 12.1 g/dl (12.0-16.0); LYMPHOCYTES # 1.2 10^3/ul (0.8-2.9); LYMPHOCYTES % 24.4 % (15.0-51.0); MEAN CORPUSCULAR HEMOGLOBIN 29.4 pg (29.0-33.0); MEAN CORPUSCULAR HGB CONC 31.6 g/dl (32.0-37.0); MEAN CORPUSCULAR VOLUME 93.2 fl (82.0-101.0); MEAN PLATELET VOLUME 10.3 fl (7.4-10.4); MONOCYTE # 0.4 10^3/ul (0.3-0.9); MONOCYTES % 8.5 % (0.0-11.0); NEUTROPHILS % 62.4 % (39.0-77.0); PLATELET COUNT 272 10^3/UL (140-415); RED BLOOD COUNT 4.11 10^6/ul (4.20-5.40); RED CELL DISTRIBUTION WIDTH 13.6 % (11.5-14.5); WHITE BLOOD COUNT 4.8 10^3/ul (4.8-10.8)
[2017-03-13 07:50] LABS: ALBUMIN 3.4 g/dl (3.3-4.9); CALCIUM 9.2 mg/dl (8.4-10.2); CREATININE 0.54 mg/dl (0.44-1.00); PHOSPHORUS 3.2 mg/dl (2.5-4.9); POTASSIUM 4.3 mmol/L (3.5-5.1)
[2017-03-13 08:01] VITALS: BP 106/72; RESP 18
[2017-03-13] MEDS: NICOTINE (21 MG/24 HR) PATCH TRANSDERM SCH (08:39)
[2017-03-13] MEDS: CHLORHEXIDINE GLUCONATE 15 ML UD CUP MT SCH ×2 (08:39→20:58)
[2017-03-13] MEDS: NACL 0.9% 3 ML SYG IV SCH ×2 (08:40→11:49)
--- NOTE | 2017-03-13 11:20 | PN ---
Date/Time of Note Date/Time of Note DATE: 03/13/17 TIME: 11:20 Assessment/Plan VTE Prophylaxis VTE Prophylaxis Intervention: SCD's Lines/Catheters IV Catheter Type (from Nrs): Peripheral IV Urinary Cath still in place: No Assessment/Plan Assessment/Plan 1. Left facial swelling secondary to dental abscess - Swelling has been improving with IV antibiotics but still feeling soft tissue mass over left maxilla - CT face showed persistent extensive left facial soft tissue swelling with soft tissue inflammatory changes over the left maxilla and mandible.. The previously noted thick-walled fluid collection or phlegmon appears mildly increased in size measuring approximately 2.4 x 1.8 x 2.9 cm. The measurement is suboptimal due to ill-defined borders. Focal lucency about the left maxillary tooth ( series 4, image 129) is unchanged. Enlarged cervical lymph nodes appear mildly decreased in size. - ENT consulted and awaiting recommendations - ID on board and consultation appreciated. Will continue on Unasyn - Blood cultures show no growth - Discussed with sister there is no inhouse oral surgeon and will need to treat the swelling and have her follow up once stable and discharged with oral surgery 2. Substance abuse - Meth user and last used on Wednesday. Will monitor for withdrawal symptoms - Currently stable 3. Tobacco abuse - Nicotine patch 4. Homelessness - SW spoke with patient during last patient and she refused all services. When condition improves, will readdress with patient 5. Hypokalemia - stable 6. Iron deficiency anemia - on iron supplements. Doing well 7. Diet -continue on mechanical soft diet Subjective 24 Hr Interval Summary Free Text/Dictation Patient states shes experiencing abdominal cramping but may be associated with her menstrual cycle. Also c/o discomfort left maxillary area where she feels "hard ball." No acute overnight events. Exam/Review of Systems Vital Signs Vitals Vital Signs Date Time Temp Pulse Resp B/P Pulse Ox O2 Delivery O2 Flow Rate FiO2 03/13/17 08:01 98.1 78 18 106/72 96 03/12/17 20:00 Room Air Intake and Output 03/12/17 03/12/17 03/13/17 15:00 23:00 07:00 Intake Total 100 ml 900 ml 1205 ml Output Total 600 ml Balance 100 ml 300 ml 1205 ml Exam Constitutional: alert, distress, oriented, disheveled, poor hygiene Eyes: improving facial swelling and able to open left eye ENMT: improving swelling of left maxillary area but hard mass palpated. 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, nl mental status, nl speech Results Result Diagram: 03/13/1752503/13/17525 Results 24 hrs Laboratory Tests Test 03/13/17 05:26 White Blood Count 4.8 # Red Blood Count 4.11 L Hemoglobin 12.1 Hematocrit 38.3 Mean Corpuscular Volume 93.2 Mean Corpuscular Hemoglobin 29.4 Mean Corpuscular Hemoglobin Concent 31.6 L Red Cell Distribution Width 13.6 Platelet Count 272 Mean Platelet Volume 10.3 Neutrophils % 62.4 Lymphocytes % 24.4 Monocytes % 8.5 Eosinophils % 3.5 Basophils % 0.6 Nucleated Red Blood Cells % 0.0 Neutrophils # 3.0 Lymphocytes # 1.2 Monocytes # 0.4 Eosinophils # 0.2 Basophils # 0.0 Nucleated Red Blood Cells # 0.0 Sodium Level 139 Potassium Level 4.3 Chloride Level 107 Carbon Dioxide Level 26 Anion Gap 10 Blood Urea Nitrogen 9 Creatinine 0.54 Glucose Level 90 Calcium Level 9.2 Phosphorus Level 3.2 Magnesium Level 2.0 Albumin 3.4 Medications Medications Current Medications Sodium Chloride (NS) 1,000 ml @ 75 mls/hr [id number] IV Last administered on t 15:03; Admin Dose 75 MLS/HR; Start 03/11/17 at 08:57 Ondansetron HCl (Zofran Inj) 4 mg Q6H PRN IV NAUSEA AND/OR VOMITING; Start at 09:00 Acetaminophen (Tylenol Tab) 650 mg Q6H PRN PO PAIN LEVEL 1-3 OR FEVER; Start 03/11/17 at 09:00 Acetaminophen/ Hydrocodone Bitart ([place] (5/325)) 1 tab Q6H PRN PO MODERATE PAIN LEVEL 4-6; Start 03/11/17 at 09:00 Morphine Sulfate (morphine) 2 mg Q4H PRN IV SEVERE PAIN LEVEL 7-10 Last administered on 03/13/17 05:10; Admin Dose 2 MG; Start 03/11/17 at 09:00 Docusate Sodium (Colace) 100 mg Q12H PRN PO CONSTIPATION; Start 03/11/17 at 09 :00 Magnesium Hydroxide 30 ml 30 ml DAILY PRN PO CONSTIPATION; Start 03/11/17 at 09:00 Ampicillin Sodium/ Sulbactam Sodium (Unasyn 3gm/NS (Pmx)) 100 ml @ 100 mls/hr Q6 IVPB Last administered on 03/13/17 05:10; Admin Dose 100 MLS/HR; Start at 09:30 Chlorhexidine Gluconate (Peridex) 15 ml Q12 MT Last administered on 03/13/17 08:39; Admin Dose 15 ML; Start 03/11/17 at 09:30 Nicotine (Nicoderm 21 Mg/ 24hr) 1 patch DAILY TRANSDERM Last administered on 08:39; Admin Dose 1 PATCH; Start 03/11/17 at 09:30 Diphenhydramine HCl (Benadryl) 25 mg Q6H PRN IV ITCHING; Start 03/12/17 at 16: 00 Lorazepam (Ativan) 0.5 mg Q6H PRN IV anxiety, agitation; Start 03/12/17 at 16: 00 ADELFO BELL MD Mar 13, 2017 11:20
[2017-03-13] MEDS: DIPHENHYDRAMINE 50 MG INJ IV PRN (11:49)
[2017-03-13] MEDS ORDERED: DICYCLOMINE 10 MG CAP PO PRN (12:00)
[2017-03-13] MEDS ORDERED: DICYCLOMINE 20 MG TAB PO PRN (12:30)
[2017-03-13 14:50] VITALS: BP 108/61; RESP 18
[2017-03-13 20:59] VITALS: BP 114/65; RESP 18
[2017-03-13] MEDS: MUPIROCIN 2% 22 GM OINT TOP SCH (21:00)
--- NOTE | 2017-03-13 21:38 | CONS ---
Date/Time of Note Date/Time of Note DATE: 03/13/17 TIME: 21:32 Consult Date/Type/Reason Admit Date/Time Mar 13, 2017 at 16:46 Initial Consult Date Type of Consultation: ID Objective Vital Signs Date Time Temp Pulse Resp B/P Pulse Ox O2 Delivery O2 Flow Rate FiO2 03/13/17 20:59 98.4 84 18 114/65 98 03/12/17 20:00 Room Air Intake and Output 03/12/17 03/12/17 03/13/17 15:00 23:00 07:00 Intake Total 100 ml 900 ml 1205 ml Output Total 600 ml Balance 100 ml 300 ml 1205 ml Results/Medications Result Diagram: 03/13/17 0526 03/13/17 0526 Results 24 hrs Laboratory Tests Test 03/13/17 05:26 White Blood Count 4.8 # Red Blood Count 4.11 L Hemoglobin 12.1 Hematocrit 38.3 Mean Corpuscular Volume 93.2 Mean Corpuscular Hemoglobin 29.4 Mean Corpuscular Hemoglobin Concent 31.6 L Red Cell Distribution Width 13.6 Platelet Count 272 Mean Platelet Volume 10.3 Neutrophils % 62.4 Lymphocytes % 24.4 Monocytes % 8.5 Eosinophils % 3.5 Basophils % 0.6 Nucleated Red Blood Cells % 0.0 Neutrophils # 3.0 Lymphocytes # 1.2 Monocytes # 0.4 Eosinophils # 0.2 Basophils # 0.0 Nucleated Red Blood Cells # 0.0 Sodium Level 139 Potassium Level 4.3 Chloride Level 107 Carbon Dioxide Level 26 Anion Gap 10 Blood Urea Nitrogen 9 Creatinine 0.54 Glucose Level 90 Calcium Level 9.2 Phosphorus Level 3.2 Magnesium Level 2.0 Albumin 3.4 Medications Current Medications Sodium Chloride (NS) 1,000 ml @ 75 mls/hr [id number] IV Last administered on t 14:17; Admin Dose 75 MLS/HR; Start 03/11/17 at 08:57 Ondansetron HCl (Zofran Inj) 4 mg Q6H PRN IV NAUSEA AND/OR VOMITING; Start at 09:00 Acetaminophen (Tylenol Tab) 650 mg Q6H PRN PO PAIN LEVEL 1-3 OR FEVER; Start 03/11/17 at 09:00 Acetaminophen/ Hydrocodone Bitart ([place] (5/325)) 1 tab Q6H PRN PO MODERATE PAIN LEVEL 4-6; Start 03/11/17 at 09:00 Morphine Sulfate (morphine) 2 mg Q4H PRN IV SEVERE PAIN LEVEL 7-10 Last administered on 03/13/17 20:58; Admin Dose 2 MG; Start 03/11/17 at 09:00 Docusate Sodium (Colace) 100 mg Q12H PRN PO CONSTIPATION; Start 03/11/17 at 09 :00 Magnesium Hydroxide 30 ml 30 ml DAILY PRN PO CONSTIPATION; Start 03/11/17 at 09:00 Ampicillin Sodium/ Sulbactam Sodium (Unasyn 3gm/NS (Pmx)) 100 ml @ 100 mls/hr Q6 IVPB Last administered on 03/13/17 17:44; Admin Dose 100 MLS/HR; Start at 09:30 Chlorhexidine Gluconate (Peridex) 15 ml Q12 MT Last administered on 03/13/17 20:58; Admin Dose 15 ML; Start 03/11/17 at 09:30 Nicotine (Nicoderm 21 Mg/ 24hr) 1 patch DAILY TRANSDERM Last administered on 08:39; Admin Dose 1 PATCH; Start 03/11/17 at 09:30 Diphenhydramine HCl (Benadryl) 25 mg Q6H PRN IV ITCHING Last administered on 11:49; Admin Dose 25 MG; Start 03/12/17 at 16:00 Lorazepam (Ativan) 0.5 mg Q6H PRN IV anxiety, agitation; Start 03/12/17 at 16: 00 Dicyclomine HCl (Bentyl) 20 mg QID PRN PO abdominal cramp Last administered on 03/13/17 14:17; Admin Dose 20 MG; Start 03/13/17 at 12:30 Mupirocin (Bactroban) 1 applic BID TOP Last administered on 03/13/17 21:00; Admin Dose 1 APPLIC; Start 03/13/17 at 21:00 Assessment/Plan Chief Complaint/Hosp Course Looks comfortable, no fevers, L facial swelling looks better Abx: Unasyn IMAGING STUDIES: A CT scan showed persistent extensive left facial soft tissue swelling with soft tissue inflammation, inflammatory changes of the left maxilla and mandible. Previous noted thick walled fluid collection or phlegmon appearance mildly increased in size measuring 2.4/1.8 x 2.9. Focal lucency about the left maxillary tooth. Enlarged cervical lymph nodes appear mildly decreased in size. PHYSICAL EXAMINATION: GENERAL: The patient is a disheveled with poor hygiene. SKIN: Without generalized rash. HEENT: Left facial swelling much better NECK: Supple. LYMPH NODES: None palpable. CHEST: Decreased breath sounds at the bases. HEART: Without murmur or gallop. ABDOMEN: Soft, nontender, without organosplenomegaly or masses. EXTREMITIES: Without cyanosis, clubbing or edema. Assessment: 1. Left facial cellulitis/periodontal abscess==> improving 2. MRSA + nares colonization 3. GNR UTI 4. Substance abuse 5. Homelessness Plan: Improving, add Bactroban to nares, continue abx DW staff Problems: ARNOL DIGGS NP Mar 13, 2017 21:38
[2017-03-14] MEDS: AMPICILLIN/SULB 3 GM/NS (PMX) 100 ML IVPB SCH ×4 (00:12→17:16)
[2017-03-14 02:00] VITALS: BP 107/63; RESP 17
[2017-03-14] MEDS: SOD CHLORIDE 0.9% 1,000 ML IV SCH ×2 (05:06→17:16)
[2017-03-14] MEDS: morphine 2 MG INJ IV PRN ×4 (05:28→21:14)
[2017-03-14 06:04] LABS: BASOPHILS % 0.7 % (0.0-2.0); EOSINOPHILS # 0.2 10^3/ul (0.0-0.5); EOSINOPHILS % 3.1 % (0.0-7.0); HEMOGLOBIN 12.1 g/dl (12.0-16.0); LYMPHOCYTES # 1.4 10^3/ul (0.8-2.9); LYMPHOCYTES % 25.8 % (15.0-51.0); MEAN CORPUSCULAR HEMOGLOBIN 28.7 pg (29.0-33.0); MEAN CORPUSCULAR VOLUME 92.6 fl (82.0-101.0); MEAN PLATELET VOLUME 11.2 fl (7.4-10.4); MONOCYTE # 0.4 10^3/ul (0.3-0.9); MONOCYTES % 6.3 % (0.0-11.0); NEUTROPHIL # 3.5 10^3/ul (1.6-7.5); NEUTROPHILS % 63.6 % (39.0-77.0); PLATELET COUNT 248 10^3/UL (140-415); RED BLOOD COUNT 4.21 10^6/ul (4.20-5.40); RED CELL DISTRIBUTION WIDTH 13.9 % (11.5-14.5); WHITE BLOOD COUNT 5.6 10^3/ul (4.8-10.8)
[2017-03-14 06:23] LABS: ALBUMIN 3.4 g/dl (3.3-4.9); CALCIUM 9.3 mg/dl (8.4-10.2); CREATININE 0.6 mg/dl (0.44-1.00); MAGNESIUM 1.9 mg/dl (1.7-2.5); PHOSPHORUS 3.5 mg/dl (2.5-4.9); POTASSIUM 4.4 mmol/L (3.5-5.1)
[2017-03-14 08:00] VITALS: BP 110/73; RESP 17
[2017-03-14] MEDS: MUPIROCIN 2% 22 GM OINT TOP SCH ×3 (09:00→21:13)
[2017-03-14] MEDS: CHLORHEXIDINE GLUCONATE 15 ML UD CUP MT SCH ×2 (09:07→21:12)
[2017-03-14] MEDS: MAGNESIUM HYDROXIDE 30ML CUP PO PRN (09:07)
[2017-03-14] MEDS: NICOTINE (21 MG/24 HR) PATCH TRANSDERM SCH (09:08)
--- NOTE | 2017-03-14 09:44 | PN ---
Date/Time of Note Date/Time of Note DATE: 03/14/17 TIME: 09:43 Assessment/Plan VTE Prophylaxis VTE Prophylaxis Intervention: ambulation Lines/Catheters IV Catheter Type (from Nrs): Peripheral IV Urinary Cath still in place: No Assessment/Plan Assessment/Plan 1. Left facial swelling secondary to dental abscess - Swelling has significantly improved on IV antibiotics but still has hard area above left maxillary sinus - CT face showed persistent extensive left facial soft tissue swelling with soft tissue inflammatory changes over the left maxilla and mandible.. The previously noted thick-walled fluid collection or phlegmon appears mildly increased in size measuring approximately 2.4 x 1.8 x 2.9 cm. The measurement is suboptimal due to ill-defined borders. Focal lucency about the left maxillary tooth ( series 4, image 129) is unchanged. Enlarged cervical lymph nodes appear mildly decreased in size. - ENT consulted and awaiting recommendations - ID on board and consultation appreciated. Will continue on Unasyn - Blood cultures show no growth - Discussed with sister there is no inhouse oral surgeon and will need to treat the swelling and have her follow up once stable and discharged with oral surgery 2. Substance abuse - Meth user and last used on Wednesday. Will monitor for withdrawal symptoms - Currently stable 3. Tobacco abuse - Nicotine patch 4. Homelessness - SW spoke with patient during last patient and she refused all services. When condition improves, will readdress with patient 5. Hypokalemia - stable 6. Iron deficiency anemia - on iron supplements. Doing well 7. Arthritis - Offered Tylenol but states doesn't help. Also complaints of generalized muscle aches and will try Cymbalta for now. Adjust medications based on effectiveness 8. Disposition - Continue to monitor, still on IV antibiotics - Will need to discuss with ID d/c medication since went home on Augmentin last visit and infection reoccurred. Subjective 24 Hr Interval Summary Free Text/Dictation Patient states feeling better but now constipated. She is still feels the " hard ball" left maxillary area. Admits that she uses meth secondary to her "spinal inflammation." Exam/Review of Systems Vital Signs Vitals Vital Signs Date Time Temp Pulse Resp B/P Pulse Ox O2 Delivery O2 Flow Rate FiO2 03/14/17 02:00 98.0 80 17 107/63 98 03/12/17 20:00 Room Air Intake and Output 03/13/17 03/13/17 03/14/17 15:00 23:00 07:00 Intake Total 550 ml 2365 ml 1215 ml Balance 550 ml 2365 ml 1215 ml Exam Constitutional: alert, distress, oriented, disheveled, poor hygiene Eyes: able to open left eye ENMT: improving swelling of left maxillary area but hard area palpated. 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, nl mental status, nl speech Results Result Diagram: 03/14/1752303/14/17 0524 Results 24 hrs Laboratory Tests Test 03/14/17 05:24 White Blood Count 5.6 Red Blood Count 4.21 Hemoglobin 12.1 Hematocrit 39.0 Mean Corpuscular Volume 92.6 Mean Corpuscular Hemoglobin 28.7 L Mean Corpuscular Hemoglobin Concent 31.0 L Red Cell Distribution Width 13.9 Platelet Count 248 Mean Platelet Volume 11.2 H Neutrophils % 63.6 Lymphocytes % 25.8 Monocytes % 6.3 Eosinophils % 3.1 Basophils % 0.7 Nucleated Red Blood Cells % 0.0 Neutrophils # 3.5 Lymphocytes # 1.4 Monocytes # 0.4 Eosinophils # 0.2 Basophils # 0.0 Nucleated Red Blood Cells # 0.0 Sodium Level 139 Potassium Level 4.4 Chloride Level 107 Carbon Dioxide Level 28 Anion Gap 8 Blood Urea Nitrogen 11 Creatinine 0.60 Glucose Level 96 Calcium Level 9.3 Phosphorus Level 3.5 Magnesium Level 1.9 Albumin 3.4 Medications Medications Current Medications Sodium Chloride (NS) 1,000 ml @ 75 mls/hr [id number] IV Last administered on t 05:06; Admin Dose 75 MLS/HR; Start 03/11/17 at 08:57 Ondansetron HCl (Zofran Inj) 4 mg Q6H PRN IV NAUSEA AND/OR VOMITING; Start at 09:00 Acetaminophen (Tylenol Tab) 650 mg Q6H PRN PO PAIN LEVEL 1-3 OR FEVER; Start 03/11/17 at 09:00 Acetaminophen/ Hydrocodone Bitart ([place] (5/325)) 1 tab Q6H PRN PO MODERATE PAIN LEVEL 4-6; Start 03/11/17 at 09:00 Morphine Sulfate (morphine) 2 mg Q4H PRN IV SEVERE PAIN LEVEL 7-10 Last administered on 03/14/17 09:08; Admin Dose 2 MG; Start 03/11/17 at 09:00 Docusate Sodium (Colace) 100 mg Q12H PRN PO CONSTIPATION; Start 03/11/17 at 09 :00 Magnesium Hydroxide 30 ml 30 ml DAILY PRN PO CONSTIPATION Last administered on 03/14/17 09:07; Admin Dose 30 ML; Start 03/11/17 at 09:00 Ampicillin Sodium/ Sulbactam Sodium (Unasyn 3gm/NS (Pmx)) 100 ml @ 100 mls/hr Q6 IVPB Last administered on 03/14/17 05:29; Admin Dose 100 MLS/HR; Start at 09:30 Chlorhexidine Gluconate (Peridex) 15 ml Q12 MT Last administered on 03/14/17 09:07; Admin Dose 15 ML; Start 03/11/17 at 09:30 Nicotine (Nicoderm 21 Mg/ 24hr) 1 patch DAILY TRANSDERM Last administered on 09:08; Admin Dose 1 PATCH; Start 03/11/17 at 09:30 Diphenhydramine HCl (Benadryl) 25 mg Q6H PRN IV ITCHING Last administered on 11:49; Admin Dose 25 MG; Start 03/12/17 at 16:00 Lorazepam (Ativan) 0.5 mg Q6H PRN IV anxiety, agitation; Start 03/12/17 at 16: 00 Dicyclomine HCl (Bentyl) 20 mg QID PRN PO abdominal cramp Last administered on 03/13/17 14:17; Admin Dose 20 MG; Start 03/13/17 at 12:30 Mupirocin (Bactroban) 1 applic BID TOP Last administered on 03/13/17 21:00; Admin Dose 1 APPLIC; Start 03/13/17 at 21:00 Mupirocin (Bactroban) 1 applic BID TOP Last administered on 03/14/17t 09:07; Admin Dose 1 APPLIC; Start 03/14/17 at 09:00 ADELFO BELL MD Mar 14, 2017 09:43
[2017-03-14] MEDS: DULOXETINE 30 MG CAP DR PO SCH (11:28)
[2017-03-14] MEDS: NACL 0.9% 3 ML SYG IV SCH (11:29)
[2017-03-14] MEDS: HYDROCODONE/APAP (5/325) TAB PO PRN (12:05)
[2017-03-14 14:00] VITALS: BP 132/75; RESP 19
--- NOTE | 2017-03-14 14:51 | CONS ---
Date/Time of Note Date/Time of Note DATE: 03/14/17 TIME: 14:46 Assessment/Plan Assessment/Plan Chief Complaint/Hosp Course Assessment/Plan Chief Complaint/Hosp Course Awake. Alert. Complains of Left Side Facial Swelling. Vital Signs: T- 98.0 BP-110/73 HR- 78 RR-17 O2Sat- 98% Abx: Unasyn IMAGING STUDIES: A CT scan showed persistent extensive left facial soft tissue swelling with soft tissue inflammation, inflammatory changes of the left maxilla and mandible. Previous noted thick walled fluid collection or phlegmon appearance mildly increased in size measuring 2.4/1.8 x 2.9. Focal lucency about the left maxillary tooth. Enlarged cervical lymph nodes appear mildly decreased in size. PHYSICAL EXAMINATION: GENERAL: The patient is a disheveled with poor hygiene. SKIN: Without generalized rash. HEENT: Left facial swelling much better NECK: Supple. LYMPH NODES: None palpable. CHEST: Decreased breath sounds at the bases. HEART: Without murmur or gallop. ABDOMEN: Soft, nontender, without organosplenomegaly or masses. EXTREMITIES: Without cyanosis, clubbing or edema. Assessment: 1. Left facial cellulitis/periodontal abscess==> improving 2. MRSA + nares colonization 3. GNR UTI 4. Substance abuse 5. Homelessness Plan: Continue antibiotics. Pain management. Monitor Labs. Problems: Consultation Date/Type/Reason Admit Date/Time Mar 13, 2017 at 16:46 Initial Consult Date Type of Consultation: ID Exam/Review of Systems Vital Signs Vitals Vital Signs Date Time Temp Pulse Resp B/P Pulse Ox O2 Delivery O2 Flow Rate FiO2 03/14/17 08:00 98.0 78 17 110/73 98 03/12/17 20:00 Room Air Intake and Output 03/13/17 03/13/17 03/14/17 15:00 23:00 07:00 Intake Total 550 ml 2365 ml 1215 ml Balance 550 ml 2365 ml 1215 ml Results Result Diagram: 03/14/1724 03/14/17523 Results 24 hrs Laboratory Tests Test 03/14/17 05:24 White Blood Count 5.6 Red Blood Count 4.21 Hemoglobin 12.1 Hematocrit 39.0 Mean Corpuscular Volume 92.6 Mean Corpuscular Hemoglobin 28.7 L Mean Corpuscular Hemoglobin Concent 31.0 L Red Cell Distribution Width 13.9 Platelet Count 248 Mean Platelet Volume 11.2 H Neutrophils % 63.6 Lymphocytes % 25.8 Monocytes % 6.3 Eosinophils % 3.1 Basophils % 0.7 Nucleated Red Blood Cells % 0.0 Neutrophils # 3.5 Lymphocytes # 1.4 Monocytes # 0.4 Eosinophils # 0.2 Basophils # 0.0 Nucleated Red Blood Cells # 0.0 Sodium Level 139 Potassium Level 4.4 Chloride Level 107 Carbon Dioxide Level 28 Anion Gap 8 Blood Urea Nitrogen 11 Creatinine 0.60 Glucose Level 96 Calcium Level 9.3 Phosphorus Level 3.5 Magnesium Level 1.9 Albumin 3.4 Medications Medications Current Medications Sodium Chloride (NS) 1,000 ml @ 75 mls/hr [id number] IV Last administered on 05:06; Admin Dose 75 MLS/HR; Start 03/11/17 at 08:57 Ondansetron HCl (Zofran Inj) 4 mg Q6H PRN IV NAUSEA AND/OR VOMITING; Start at 09:00 Acetaminophen (Tylenol Tab) 650 mg Q6H PRN PO PAIN LEVEL 1-3 OR FEVER; Start 03/11/17 at 09:00 Acetaminophen/ Hydrocodone Bitart ([place] (5/325)) 1 tab Q6H PRN PO MODERATE PAIN LEVEL 4-6 Last administered on 03/14/17 12:05; Admin Dose 1 TAB; Start 03/11/17 at 09:00 Morphine Sulfate (morphine) 2 mg Q4H PRN IV SEVERE PAIN LEVEL 7-10 Last administered on 03/14/17 09:08; Admin Dose 2 MG; Start 03/11/17 at 09:00 Docusate Sodium (Colace) 100 mg Q12H PRN PO CONSTIPATION; Start 03/11/17 at 09 :00 Magnesium Hydroxide 30 ml 30 ml DAILY PRN PO CONSTIPATION Last administered on 03/14/17 09:07; Admin Dose 30 ML; Start 03/11/17 at 09:00 Ampicillin Sodium/ Sulbactam Sodium (Unasyn 3gm/NS (Pmx)) 100 ml @ 100 mls/hr Q6 IVPB Last administered on 03/14/17 11:30; Admin Dose 100 MLS/HR; Start at 09:30 Chlorhexidine Gluconate (Peridex) 15 ml Q12 MT Last administered on 03/14/17 09:07; Admin Dose 15 ML; Start 03/11/17 at 09:30 Nicotine (Nicoderm 21 Mg/ 24hr) 1 patch DAILY TRANSDERM Last administered on 09:08; Admin Dose 1 PATCH; Start 03/11/17 at 09:30 Diphenhydramine HCl (Benadryl) 25 mg Q6H PRN IV ITCHING Last administered on 11:49; Admin Dose 25 MG; Start 03/12/17 at 16:00 Lorazepam (Ativan) 0.5 mg Q6H PRN IV anxiety, agitation; Start 03/12/17 at 16: 00 Dicyclomine HCl (Bentyl) 20 mg QID PRN PO abdominal cramp Last administered on 03/13/17 14:17; Admin Dose 20 MG; Start 03/13/17 at 12:30 Mupirocin (Bactroban) 1 applic BID TOP Last administered on 03/14/17 09:07; Admin Dose 1 APPLIC; Start 03/14/17 at 09:00 Duloxetine HCl (Cymbalta) 30 mg DAILY PO Last administered on 03/14/17 11:28 ; Admin Dose 30 MG; Start 03/14/17 at 10:00 DENISA FRANCIS NP Mar 14, 2017 14:51
[2017-03-14] MEDS: DOCUSATE SODIUM 100 MG CAP PO PRN (17:16)
[2017-03-14 20:00] VITALS: BP 115/64; RESP 17
[2017-03-14] MEDS: DIPHENHYDRAMINE 50 MG INJ IV PRN (21:13)
[2017-03-15] MEDS: AMPICILLIN/SULB 3 GM/NS (PMX) 100 ML IVPB SCH ×5 (00:19→23:38)
[2017-03-15] MEDS: morphine 2 MG INJ IV PRN ×4 (01:13→20:04)
[2017-03-15 05:36] LABS: BASOPHILS % 0.8 % (0.0-2.0); EOSINOPHILS # 0.2 10^3/ul (0.0-0.5); EOSINOPHILS % 4.5 % (0.0-7.0); HEMATOCRIT 38.2 % (37.0-47.0); HEMOGLOBIN 11.9 g/dl (12.0-16.0); LYMPHOCYTES # 1.7 10^3/ul (0.8-2.9); LYMPHOCYTES % 32.6 % (15.0-51.0); MEAN CORPUSCULAR HEMOGLOBIN 28.9 pg (29.0-33.0); MEAN CORPUSCULAR HGB CONC 31.2 g/dl (32.0-37.0); MEAN CORPUSCULAR VOLUME 92.7 fl (82.0-101.0); MEAN PLATELET VOLUME 10.3 fl (7.4-10.4); MONOCYTE # 0.4 10^3/ul (0.3-0.9); MONOCYTES % 7.4 % (0.0-11.0); NEUTROPHIL # 2.8 10^3/ul (1.6-7.5); NEUTROPHILS % 53.9 % (39.0-77.0); PLATELET COUNT 301 10^3/UL (140-415); RED BLOOD COUNT 4.12 10^6/ul (4.20-5.40); RED CELL DISTRIBUTION WIDTH 13.7 % (11.5-14.5); WHITE BLOOD COUNT 5.2 10^3/ul (4.8-10.8)
[2017-03-15 05:54] LABS: ALBUMIN 3.5 g/dl (3.3-4.9); CREATININE 0.59 mg/dl (0.44-1.00); MAGNESIUM 1.8 mg/dl (1.7-2.5); PHOSPHORUS 3.9 mg/dl (2.5-4.9); POTASSIUM 4.4 mmol/L (3.5-5.1)
[2017-03-15] MEDS: HYDROCODONE/APAP (5/325) TAB PO PRN ×3 (06:42→22:01)
[2017-03-15] MEDS: SOD CHLORIDE 0.9% 1,000 ML IV SCH ×2 (07:49→10:51)
[2017-03-15 08:19] VITALS: BP 125/71; RESP 18
[2017-03-15] MEDS: NICOTINE (21 MG/24 HR) PATCH TRANSDERM SCH (09:11)
[2017-03-15] MEDS: MUPIROCIN 2% 22 GM OINT TOP SCH ×2 (09:11→20:03)
[2017-03-15] MEDS: DULOXETINE 30 MG CAP DR PO SCH (09:11)
[2017-03-15] MEDS: CHLORHEXIDINE GLUCONATE 15 ML UD CUP MT SCH ×2 (09:11→20:02)
--- NOTE | 2017-03-15 12:03 | PN ---
DATE: 03/12/2017 SUBJECTIVE: No events overnight. The patient is awake, looks comfortable, denies pain, no fevers. LABORATORY DATA: WBC 8.6, neutrophils 77.2, no bands. BUN 5, creatinine 0.50. MICROBIOLOGY: Blood culture negative. Urine culture pending. DIAGNOSTICS: CT of the face revealed mild increase in size this periodontal abscess or phlegm on is involving left maxillary tooth. Left facial swelling, inflammatory changes and reactive lymph nodes. Chronic sinusitis increase in left maxillary sinus. ANTIMICROBIALS: The patient is on Unasyn. PHYSICAL EXAMINATION: GENERAL: Well-developed, well-nourished middle-aged white woman who is awake, in no distress. HEENT: Head atraumatic, normocephalic. Sclerae anicteric with left significant periorbital edema a nd swelling of the eye, unable to open it and left-sided swelling of his face as well as upper lip. There is also some erythema. NECK: Supple. CHEST: Rise symmetrical. Breath sounds clear. HEART: S1, S2. ABDOMEN: Soft, bowel tones present. EXTREMITIES: Without cyanosis. ASSESSMENT: 1. Facial cellulitis on the left with periodontal abscess and acute on chronic sinusitis. 2. History of substance abuse. 3. Homelessness. PLAN: Patient remains stable on appropriate antibiotics. Pending ENT evaluation. Dictated By: ARNOL DIGGS [employer] REPAIRER for ALETHA VELASCO/BRANDON Conf#: [id number] DID#: [id number]
[2017-03-15 14:33] VITALS: BP 106/67; RESP 20
--- NOTE | 2017-03-15 15:24 | CONS ---
Date/Time of Note Date/Time of Note DATE: 03/15/17 TIME: 15:13 Consultation Date/Type/Reason Admit Date/Time Mar 13, 2017 at 16:46 Initial Consult Date SUBJECTIVE: 36 y/o female being treated for Left facial cellulitis/ periodontal abscess. The patient is awake, looks comfortable, denies pain, no fevers. No acute events over night. VS: 106/67 P: 97 R:20 SO2:99% T:98.0 LABORATORY DATA: WBC -5.2 H&H- 11.9/38.2 BMP= WNL MICROBIOLOGY: Blood culture negative. uRINE CULTURE Final Organism 1 GARDNERELLA VAGINALIS COLONY COUNT >100,000 CFU/ml Organism 2 MIXED GRAM POSITIVE ORGANISMS COLONY COUNT >100,000 CFU/ml DIAGNOSTICS: CT of the face revealed mild increase in size this is a periodontal abscess or phlegmon is involving left maxillary tooth. Left facial swelling, inflammatory changes and reactive lymph nodes. Chronic sinusitis increase in left maxillary sinus. ANTIMICROBIALS: The patient is on Unasyn. PHYSICAL EXAMINATION: GENERAL: Well-developed, well-nourished middle-aged white woman who is awake, in no distress. HEENT: Head atraumatic, normocephalic. Sclerae anicteric with left significant periorbital edema and swelling of the eye, unable to open it and left-sided swelling of his face as well as upper lip. There is also some erythema. NECK: Supple. CHEST: Rise symmetrical. Breath sounds clear. HEART: S1, S2. ABDOMEN: Soft, bowel tones present. EXTREMITIES: Without cyanosis. ASSESSMENT: 1. Facial cellulitis on the left with periodontal abscess and acute on chronic sinusitis. 2. History of substance abuse. 3. Homelessness. 4. Iron Deficiency Anemia . PLAN: Patient remains stable. Continue IV Unasyn. Anticipate D/C on PO Augmentin. Pt will needs to schedule outpt F/U with oral surgeon and Dentist for I&D of the periodontal abscess to avoid future recurrence of cellulitis. Type of Consultation: ID Exam/Review of Systems Vital Signs Vitals Vital Signs Date Time Temp Pulse Resp B/P Pulse Ox O2 Delivery O2 Flow Rate FiO2 03/15/17 14:33 98.0 97 20 106/67 99 03/12/17 20:00 Room Air Intake and Output 03/14/17 03/14/17 03/15/17 15:00 23:00 07:00 Intake Total 100 ml 1790 ml 1855 ml Balance 100 ml 1790 ml 1855 ml Results Result Diagram: 03/15/17 0501 03/15/17 0501 Results 24 hrs Laboratory Tests Test 03/15/17 05:01 White Blood Count 5.2 Red Blood Count 4.12 L Hemoglobin 11.9 L Hematocrit 38.2 Mean Corpuscular Volume 92.7 Mean Corpuscular Hemoglobin 28.9 L Mean Corpuscular Hemoglobin Concent 31.2 L Red Cell Distribution Width 13.7 Platelet Count 301 # Mean Platelet Volume 10.3 Neutrophils % 53.9 Lymphocytes % 32.6 Monocytes % 7.4 Eosinophils % 4.5 Basophils % 0.8 Nucleated Red Blood Cells % 0.0 Neutrophils # 2.8 Lymphocytes # 1.7 Monocytes # 0.4 Eosinophils # 0.2 Basophils # 0.0 Nucleated Red Blood Cells # 0.0 Sodium Level 138 Potassium Level 4.4 Chloride Level 104 Carbon Dioxide Level 27 Anion Gap 11 Blood Urea Nitrogen 12 Creatinine 0.59 Glucose Level 100 Calcium Level 9.0 Phosphorus Level 3.9 Magnesium Level 1.8 Albumin 3.5 Medications Medications Current Medications Ondansetron HCl (Zofran Inj) 4 mg Q6H PRN IV NAUSEA AND/OR VOMITING; Start at 09:00 Acetaminophen (Tylenol Tab) 650 mg Q6H PRN PO PAIN LEVEL 1-3 OR FEVER; Start 03/11/17 at 09:00 Acetaminophen/ Hydrocodone Bitart ([place] (5/325)) 1 tab Q6H PRN PO MODERATE PAIN LEVEL 4-6 Last administered on 03/15/17 06:42; Admin Dose 1 TAB; Start 03/11/17 at 09:00 Morphine Sulfate (morphine) 2 mg Q4H PRN IV SEVERE PAIN LEVEL 7-10 Last administered on 03/15/17 13:54; Admin Dose 2 MG; Start 03/11/17 at 09:00 Docusate Sodium (Colace) 100 mg Q12H PRN PO CONSTIPATION Last administered on 03/14/17 17:16; Admin Dose 100 MG; Start 03/11/17 at 09:00 Magnesium Hydroxide 30 ml 30 ml DAILY PRN PO CONSTIPATION Last administered on 03/14/17 09:07; Admin Dose 30 ML; Start 03/11/17 at 09:00 Ampicillin Sodium/ Sulbactam Sodium (Unasyn 3gm/NS (Pmx)) 100 ml @ 100 mls/hr Q6 IVPB Last administered on 03/15/17 12:26; Admin Dose 100 MLS/HR; Start at 09:30 Chlorhexidine Gluconate (Peridex) 15 ml Q12 MT Last administered on 03/15/17 09:11; Admin Dose 15 ML; Start 03/11/17 at 09:30 Nicotine (Nicoderm 21 Mg/ 24hr) 1 patch DAILY TRANSDERM Last administered on 09:11; Admin Dose 1 PATCH; Start 03/11/17 at 09:30 Diphenhydramine HCl (Benadryl) 25 mg Q6H PRN IV ITCHING Last administered on 21:13; Admin Dose 25 MG; Start 03/12/17 at 16:00 Lorazepam (Ativan) 0.5 mg Q6H PRN IV anxiety, agitation; Start 03/12/17 at 16: 00 Dicyclomine HCl (Bentyl) 20 mg QID PRN PO abdominal cramp Last administered on 03/13/17 14:17; Admin Dose 20 MG; Start 03/13/17 at 12:30 Mupirocin (Bactroban) 1 applic BID TOP Last administered on 03/15/17 09:11; Admin Dose 1 APPLIC; Start 03/14/17 at 09:00 Duloxetine HCl (Cymbalta) 30 mg DAILY PO Last administered on 03/15/17 09:11 ; Admin Dose 30 MG; Start 03/14/17 at 10:00 Metronidazole (Flagyl) 500 mg BID PO ; Start 03/15/17 at 21:00 KELI KOENIG Mar 15, 2017 15:23
--- NOTE | 2017-03-15 15:53 | RADRPT ---
PROCEDURE: Ultrasound of the soft tissues of the left cheek. CLINICAL INDICATION: Palpable lesion in the left cheek. TECHNIQUE: High-resolution sonography of the left cheek at the site of the palpable lesion was per formed in the axial and sagittal planes. COMPARISON: None FINDINGS: At the site of the palpable lesion in the left cheek, there is a subcutaneous fluid collection measu ring 5.1 x 0.9 x 2.8 cm. There is no other cystic or solid mass at this site. IMPRESSION: 1. Subcutaneous fluid collection measuring 5.1 x 0.9 x 2.8 cm at the site of the palpable lesion in the left cheek. 2. Any further management regarding the fluid collection should be based on clinical grounds. RPTAT: QQ .Migel Weston MD, Date Time Electronically viewed and signed by .Migel Weston MD, on 03/15/2017 15:53 .R/
--- NOTE | 2017-03-15 18:08 | PN ---
Date/Time of Note Date/Time of Note DATE: 03/15/17 TIME: 18:03 Assessment/Plan VTE Prophylaxis VTE Prophylaxis Intervention: ambulation Lines/Catheters [facility] (from [facility] Peripheral IV Urinary Cath still in place: No Assessment/Plan Chief Complaint/Hosp Course Assessment/Plan 1. Left facial swelling secondary to dental abscess - Swelling has significantly improved on IV antibiotics but still has hard area above left maxillary sinus - repeat US soft tissue 03/15 showed fluid collection still - CT face showed persistent extensive left facial soft tissue swelling with soft tissue inflammatory changes over the left maxilla and mandible.. The previously noted thick-walled fluid collection or phlegmon appears mildly increased in size measuring approximately 2.4 x 1.8 x 2.9 cm. The measurement is suboptimal due to ill-defined borders. Focal lucency about the left maxillary tooth ( series 4, image 129) is unchanged. Enlarged cervical lymph nodes appear mildly decreased in size. - ENT consulted and awaiting recommendations, called 3 days in a row. multiple messages left with nursing. - ID on board and consultation appreciated. Will continue on Unasyn - Blood cultures show no growth - Discussed with sister there is no inhouse oral surgeon and will need to treat the swelling and have her follow up once stable and discharged with oral surgery #BV -flagyl 2. Substance abuse - Meth user and last used on Wednesday. Will monitor for withdrawal symptoms - Currently stable 3. Tobacco abuse - Nicotine patch 4. Homelessness - SW spoke with patient during last patient and she refused all services. When condition improves, will readdress with patient 5. Hypokalemia - stable 6. Iron deficiency anemia - on iron supplements. Doing well 7. Arthritis - Offered Tylenol but states doesn't help. Also complaints of generalized muscle aches and will try Cymbalta for now. Adjust medications based on effectiveness 8. Disposition - Continue to monitor, still on IV antibiotics - Will need to discuss with ID d/c medication since went home on Augmentin last visit and infection reoccurred. Problems: Subjective 24 Hr Interval Summary Free Text/Dictation feels swelling is much better. Exam/Review of Systems Vital Signs Vitals Vital Signs Date Time Temp Pulse Resp B/P Pulse Ox O2 Delivery O2 Flow Rate FiO2 03/15/17 14:33 98.0 97 20 106/67 99 03/12/17 20:00 Room Air Intake and Output 03/14/17 03/14/17 03/15/17 15:00 23:00 07:00 Intake Total 100 ml 1790 ml 1855 ml Balance 100 ml 1790 ml 1855 ml Exam Constitutional: alert, distress, oriented, disheveled, poor hygiene Eyes: EOMI ENMT: mild left cheek swelling. Neck: non-tender, supple Respiratory: clear to auscultation, No crackles/rales, No wheezing Cardiovascular: regular rate and rhythm, No murmurs/extra sounds, No systolic murmur Gastrointestinal: bowel sounds, mild tenderness LLQ, soft, No distended, No mass Genitourinary - Female: No CVA tenderness Musculoskeletal: nl extremities to inspection, No spine non-tender Extremities: normal pulses, No clubbing, No cyanosis, No edema Neurological: LUMBER PILER II-XII intact, nl mental status, nl speech Results Result Diagram: 03/15/17 0501 03/15/17 0501 Results 24 hrs Laboratory Tests Test 03/15/17 05:01 White Blood Count 5.2 Red Blood Count 4.12 L Hemoglobin 11.9 L Hematocrit 38.2 Mean Corpuscular Volume 92.7 Mean Corpuscular Hemoglobin 28.9 L Mean Corpuscular Hemoglobin Concent 31.2 L Red Cell Distribution Width 13.7 Platelet Count 301 # Mean Platelet Volume 10.3 Neutrophils % 53.9 Lymphocytes % 32.6 Monocytes % 7.4 Eosinophils % 4.5 Basophils % 0.8 Nucleated Red Blood Cells % 0.0 Neutrophils # 2.8 Lymphocytes # 1.7 Monocytes # 0.4 Eosinophils # 0.2 Basophils # 0.0 Nucleated Red Blood Cells # 0.0 Sodium Level 138 Potassium Level 4.4 Chloride Level 104 Carbon Dioxide Level 27 Anion Gap 11 Blood Urea Nitrogen 12 Creatinine 0.59 Glucose Level 100 Calcium Level 9.0 Phosphorus Level 3.9 Magnesium Level 1.8 Albumin 3.5 Medications Medications Current Medications Ondansetron HCl (Zofran Inj) 4 mg Q6H PRN IV NAUSEA AND/OR VOMITING; Start at 09:00 Acetaminophen (Tylenol Tab) 650 mg Q6H PRN PO PAIN LEVEL 1-3 OR FEVER; Start 03/11/17 at 09:00 Acetaminophen/ Hydrocodone Bitart ([place] (5/325)) 1 tab Q6H PRN PO MODERATE PAIN LEVEL 4-6 Last administered on 03/15/17 15:56; Admin Dose 1 TAB; Start 03/11/17 at 09:00 Morphine Sulfate (morphine) 2 mg Q4H PRN IV SEVERE PAIN LEVEL 7-10 Last administered on 03/15/17 13:54; Admin Dose 2 MG; Start 03/11/17 at 09:00 Docusate Sodium (Colace) 100 mg Q12H PRN PO CONSTIPATION Last administered on 03/14/17 17:16; Admin Dose 100 MG; Start 03/11/17 at 09:00 Magnesium Hydroxide 30 ml 30 ml DAILY PRN PO CONSTIPATION Last administered on 03/14/17 09:07; Admin Dose 30 ML; Start 03/11/17 at 09:00 Ampicillin Sodium/ Sulbactam Sodium (Unasyn 3gm/NS (Pmx)) 100 ml @ 100 mls/hr Q6 IVPB Last administered on 03/15/17 12:26; Admin Dose 100 MLS/HR; Start at 09:30 Chlorhexidine Gluconate (Peridex) 15 ml Q12 MT Last administered on 03/15/17 09:11; Admin Dose 15 ML; Start 03/11/17 at 09:30 Nicotine (Nicoderm 21 Mg/ 24hr) 1 patch DAILY TRANSDERM Last administered on 09:11; Admin Dose 1 PATCH; Start 03/11/17 at 09:30 Diphenhydramine HCl (Benadryl) 25 mg Q6H PRN IV ITCHING Last administered on 21:13; Admin Dose 25 MG; Start 03/12/17 at 16:00 Lorazepam (Ativan) 0.5 mg Q6H PRN IV anxiety, agitation; Start 03/12/17 at 16: 00 Dicyclomine HCl (Bentyl) 20 mg QID PRN PO abdominal cramp Last administered on 03/13/17 14:17; Admin Dose 20 MG; Start 03/13/17 at 12:30 Mupirocin (Bactroban) 1 applic BID TOP Last administered on 03/15/17 09:11; Admin Dose 1 APPLIC; Start 03/14/17 at 09:00 Duloxetine HCl (Cymbalta) 30 mg DAILY PO Last administered on 03/15/17 09:11 ; Admin Dose 30 MG; Start 03/14/17 at 10:00 Metronidazole (Flagyl) 500 mg BID PO ; Start 03/15/17 at 21:00 FILIBERTO NEGRO Mar 15, 2017 18:08
[2017-03-15] MEDS ORDERED: metroNIDAZOLE 500 MG TAB ONE (19:34)
[2017-03-15 20:00] VITALS: BP 123/76; RESP 18
[2017-03-15] MEDS: metroNIDAZOLE 500 MG TAB PO SCH (20:02)
[2017-03-15] MEDS: DIPHENHYDRAMINE 50 MG INJ IV PRN (22:04)
[2017-03-16] MEDS: morphine 2 MG INJ IV PRN ×5 (01:07→18:43)
[2017-03-16 02:00] VITALS: BP 97/55; RESP 18
[2017-03-16] MEDS: AMPICILLIN/SULB 3 GM/NS (PMX) 100 ML IVPB SCH ×6 (05:24→23:59)
[2017-03-16 05:26] LABS: BASOPHILS % 0.7 % (0.0-2.0); EOSINOPHILS # 0.2 10^3/ul (0.0-0.5); EOSINOPHILS % 3.8 % (0.0-7.0); HEMATOCRIT 38.1 % (37.0-47.0); HEMOGLOBIN 11.7 g/dl (12.0-16.0); LYMPHOCYTES # 1.4 10^3/ul (0.8-2.9); MEAN CORPUSCULAR HEMOGLOBIN 28.7 pg (29.0-33.0); MEAN CORPUSCULAR HGB CONC 30.7 g/dl (32.0-37.0); MEAN CORPUSCULAR VOLUME 93.4 fl (82.0-101.0); MEAN PLATELET VOLUME 10.2 fl (7.4-10.4); MONOCYTE # 0.3 10^3/ul (0.3-0.9); MONOCYTES % 6.7 % (0.0-11.0); NEUTROPHIL # 2.5 10^3/ul (1.6-7.5); NEUTROPHILS % 55.9 % (39.0-77.0); PLATELET COUNT 294 10^3/UL (140-415); RED BLOOD COUNT 4.08 10^6/ul (4.20-5.40); RED CELL DISTRIBUTION WIDTH 13.5 % (11.5-14.5); WHITE BLOOD COUNT 4.5 10^3/ul (4.8-10.8)
[2017-03-16 05:45] LABS: CALCIUM 9.3 mg/dl (8.4-10.2); CREATININE 0.59 mg/dl (0.44-1.00); MAGNESIUM 1.9 mg/dl (1.7-2.5); PHOSPHORUS 4.2 mg/dl (2.5-4.9); POTASSIUM 4.5 mmol/L (3.5-5.1)
[2017-03-16] MEDS: HYDROCODONE/APAP (5/325) TAB PO PRN ×2 (06:38→13:01)
[2017-03-16 07:50] VITALS: BP 110/70; RESP 16
[2017-03-16] MEDS: CHLORHEXIDINE GLUCONATE 15 ML UD CUP MT SCH ×2 (09:51→20:56)
[2017-03-16] MEDS: DULOXETINE 30 MG CAP DR PO SCH (09:51)
[2017-03-16] MEDS: NICOTINE (21 MG/24 HR) PATCH TRANSDERM SCH (09:51)
[2017-03-16] MEDS: MUPIROCIN 2% 22 GM OINT TOP SCH ×2 (09:52→20:56)
[2017-03-16] MEDS: metroNIDAZOLE 500 MG TAB PO SCH ×2 (09:52→20:56)
--- NOTE | 2017-03-16 14:02 | CONS ---
Date/Time of Note Date/Time of Note DATE: 03/16/17 TIME: 13:59 Consult Date/Type/Reason Admit Date/Time Mar 13, 2017 at 16:46 Type of Consultation: ID Objective Vital Signs Date Time Temp Pulse Resp B/P Pulse Ox O2 Delivery O2 Flow Rate FiO2 03/16/17 07:50 97.4 67 16 110/70 96 03/12/17 20:00 Room Air Intake and Output 03/15/17 03/15/17 03/16/17 15:00 23:00 07:00 Intake Total 100 ml 1000 ml 1060 ml Balance 100 ml 1000 ml 1060 ml Results/Medications Result Diagram: 03/16/17 0441 03/16/17 0441 Results 24 hrs Laboratory Tests Test 03/16/17 04:41 White Blood Count 4.5 L Red Blood Count 4.08 L Hemoglobin 11.7 L Hematocrit 38.1 Mean Corpuscular Volume 93.4 Mean Corpuscular Hemoglobin 28.7 L Mean Corpuscular Hemoglobin Concent 30.7 L Red Cell Distribution Width 13.5 Platelet Count 294 Mean Platelet Volume 10.2 Neutrophils % 55.9 Lymphocytes % 32.0 Monocytes % 6.7 Eosinophils % 3.8 Basophils % 0.7 Nucleated Red Blood Cells % 0.0 Neutrophils # 2.5 Lymphocytes # 1.4 Monocytes # 0.3 Eosinophils # 0.2 Basophils # 0.0 Nucleated Red Blood Cells # 0.0 Sodium Level 137 Potassium Level 4.5 Chloride Level 101 Carbon Dioxide Level 31 Anion Gap 10 Blood Urea Nitrogen 14 Creatinine 0.59 Glucose Level 92 Calcium Level 9.3 Phosphorus Level 4.2 Magnesium Level 1.9 Medications Current Medications Ondansetron HCl (Zofran Inj) 4 mg Q6H PRN IV NAUSEA AND/OR VOMITING; Start at 09:00 Acetaminophen (Tylenol Tab) 650 mg Q6H PRN PO PAIN LEVEL 1-3 OR FEVER; Start 03/11/17 at 09:00 Acetaminophen/ Hydrocodone Bitart ([place] (5/325)) 1 tab Q6H PRN PO MODERATE PAIN LEVEL 4-6 Last administered on 03/16/17 13:01; Admin Dose 1 TAB; Start 03/11/17 at 09:00 Morphine Sulfate (morphine) 2 mg Q4H PRN IV SEVERE PAIN LEVEL 7-10 Last administered on 03/16/17 13:50; Admin Dose 2 MG; Start 03/11/17 at 09:00 Docusate Sodium (Colace) 100 mg Q12H PRN PO CONSTIPATION Last administered on 03/14/17 17:16; Admin Dose 100 MG; Start 03/11/17 at 09:00 Magnesium Hydroxide 30 ml 30 ml DAILY PRN PO CONSTIPATION Last administered on 03/14/17 09:07; Admin Dose 30 ML; Start 03/11/17 at 09:00 Ampicillin Sodium/ Sulbactam Sodium (Unasyn 3gm/NS (Pmx)) 100 ml @ 100 mls/hr Q6 IVPB Last administered on 03/16/17 13:49; Admin Dose 100 MLS/HR; Start at 09:30 Chlorhexidine Gluconate (Peridex) 15 ml Q12 MT Last administered on 03/16/17 09:51; Admin Dose 15 ML; Start 03/11/17 at 09:30 Nicotine (Nicoderm 21 Mg/ 24hr) 1 patch DAILY TRANSDERM Last administered on 09:51; Admin Dose 1 PATCH; Start 03/11/17 at 09:30 Diphenhydramine HCl (Benadryl) 25 mg Q6H PRN IV ITCHING Last administered on 22:04; Admin Dose 25 MG; Start 03/12/17 at 16:00 Lorazepam (Ativan) 0.5 mg Q6H PRN IV anxiety, agitation; Start 03/12/17 at 16: 00 Dicyclomine HCl (Bentyl) 20 mg QID PRN PO abdominal cramp Last administered on 03/13/17 14:17; Admin Dose 20 MG; Start 03/13/17 at 12:30 Mupirocin (Bactroban) 1 applic BID TOP Last administered on 03/16/17 09:52; Admin Dose 1 APPLIC; Start 03/14/17 at 09:00 Duloxetine HCl (Cymbalta) 30 mg DAILY PO Last administered on 03/16/17 09:51 ; Admin Dose 30 MG; Start 03/14/17 at 10:00 Metronidazole (Flagyl) 500 mg BID PO Last administered on 03/16/17 09:52; Admin Dose 500 MG; Start 10/23/17 at 21:00 Assessment/Plan Chief Complaint/Hosp Course Looks comfortable, no fevers, L facial swelling looks better Facial ultrasound done yesterday revealed subcutaneous fluid collection measuring 5.1 x 0.9 x 2.8 cm at the site of the palpable lesion in the left cheek Abx: Unasyn PHYSICAL EXAMINATION: GENERAL: The patient is a disheveled with poor hygiene. SKIN: Without generalized rash. HEENT: Left facial swelling much better NECK: Supple. LYMPH NODES: None palpable. CHEST: Decreased breath sounds at the bases. HEART: Without murmur or gallop. ABDOMEN: Soft, nontender, bowel tones present. EXTREMITIES: Without cyanosis, clubbing or edema. Assessment: 1. Left facial cellulitis/periodontal abscess 2. 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 GPR bacteremia consistent with contaminant 4. Substance abuse 5. Homelessness Plan: Remains stable, facial swelling improved, we will continue her on current antibiotics. Patient needs to be seen by oral surgeon for abscess drainage DW staff Problems: ARNOL DIGGS NP Mar 16, 2017 14:02
[2017-03-16] MEDS: DOCUSATE SODIUM 100 MG CAP PO PRN (14:37)
[2017-03-16] MEDS: MAGNESIUM HYDROXIDE 30ML CUP PO PRN (14:37)
[2017-03-16 14:40] VITALS: BP 107/58; RESP 16
[2017-03-16 20:11] VITALS: BP 104/61; RESP 19
[2017-03-16] MEDS: DIPHENHYDRAMINE 50 MG INJ IV PRN (21:05)
--- NOTE | 2017-03-16 22:15 | PN ---
Date/Time of Note Date/Time of Note DATE: 03/16/17 TIME: 22:10 Assessment/Plan VTE Prophylaxis VTE Prophylaxis Intervention: ambulation Lines/Catheters IV [facility] Type (from [facility]): Peripheral IV Urinary Cath still in place: No Assessment/Plan Chief Complaint/Hosp Course Assessment/Plan 1. Left facial swelling secondary to dental abscess - Swelling has significantly improved on IV antibiotics but still has hard area above left maxillary sinus - repeat US soft tissue 03/15 showed fluid collection still - CT face showed persistent extensive left facial soft tissue swelling with soft tissue inflammatory changes over the left maxilla and mandible.. The previously noted thick-walled fluid collection or phlegmon appears mildly increased in size measuring approximately 2.4 x 1.8 x 2.9 cm. The measurement is suboptimal due to ill-defined borders. Focal lucency about the left maxillary tooth ( series 4, image 129) is unchanged. Enlarged cervical lymph nodes appear mildly decreased in size. - ENT consulted, however states it is a oral surgery issue, will need oral surgery inpatient or outpatient - ID on board and consultation appreciated. Will continue on Unasyn - Blood cultures show no growth - Discussed with sister there is no inhouse oral surgeon and will need to treat the swelling and have her follow up once stable and discharged with oral surgery #BV -flagyl 2. Substance abuse - Meth user and last used on Wednesday. Will monitor for withdrawal symptoms - Currently stable 3. Tobacco abuse - Nicotine patch 4. Homelessness - SW spoke with patient during last patient and she refused all services. When condition improves, will re-address with patient 5. Hypokalemia - stable 6. Iron deficiency anemia - on iron supplements. Doing well 7. Arthritis - Offered Tylenol but states doesn't help. Also complaints of generalized muscle aches and will try Cymbalta for now. Adjust medications based on effectiveness 8. Disposition - Continue to monitor, still on IV antibiotics - f/u ID recs, will DC when appropriate outpatient oral surgery arrangements can be made Problems: Subjective 24 Hr Interval Summary Free Text/Dictation no acute change. Exam/Review of Systems Vital Signs Vitals Vital Signs Date Time Temp Pulse Resp B/P Pulse Ox O2 Delivery O2 Flow Rate FiO2 03/16/17 20:11 97.9 78 19 104/61 97 03/12/17 20:00 Room Air Intake and Output 03/15/17 03/15/17 03/16/17 15:00 23:00 07:00 Intake Total 100 ml 1000 ml 1060 ml Balance 100 ml 1000 ml 1060 ml Exam Constitutional: alert, distress, oriented, disheveled, poor hygiene Eyes: EOMI ENMT: mild left cheek swelling. Neck: non-tender, supple Respiratory: clear to auscultation, No crackles/rales, No wheezing Cardiovascular: regular rate and rhythm, No murmurs/extra sounds, No systolic murmur Gastrointestinal: bowel sounds, mild tenderness LLQ, soft, No distended, No mass Genitourinary - Female: No CVA tenderness Musculoskeletal: nl extremities to inspection, No spine non-tender Extremities: normal pulses, No clubbing, No cyanosis, No edema Neurological: CUFF SETTER OVERLOCK II-XII intact, nl mental status, nl speech Results Result Diagram: 03/16/1744003/16/17440 Results 24 hrs Laboratory Tests Test 03/16/17 04:41 White Blood Count 4.5 L Red Blood Count 4.08 L Hemoglobin 11.7 L Hematocrit 38.1 Mean Corpuscular Volume 93.4 Mean Corpuscular Hemoglobin 28.7 L Mean Corpuscular Hemoglobin Concent 30.7 L Red Cell Distribution Width 13.5 Platelet Count 294 Mean Platelet Volume 10.2 Neutrophils % 55.9 Lymphocytes % 32.0 Monocytes % 6.7 Eosinophils % 3.8 Basophils % 0.7 Nucleated Red Blood Cells % 0.0 Neutrophils # 2.5 Lymphocytes # 1.4 Monocytes # 0.3 Eosinophils # 0.2 Basophils # 0.0 Nucleated Red Blood Cells # 0.0 Sodium Level 137 Potassium Level 4.5 Chloride Level 101 Carbon Dioxide Level 31 Anion Gap 10 Blood Urea Nitrogen 14 Creatinine 0.59 Glucose Level 92 Calcium Level 9.3 Phosphorus Level 4.2 Magnesium Level 1.9 Medications Medications Current Medications Ondansetron HCl (Zofran Inj) 4 mg Q6H PRN IV NAUSEA AND/OR VOMITING; Start at 09:00 Acetaminophen (Tylenol Tab) 650 mg Q6H PRN PO PAIN LEVEL 1-3 OR FEVER; Start 03/11/17 at 09:00 Acetaminophen/ Hydrocodone Bitart ([place] (5/325)) 1 tab Q6H PRN PO MODERATE PAIN LEVEL 4-6 Last administered on 03/16/17t 13:01; Admin Dose 1 TAB; Start 03/11/17 at 09:00 Morphine Sulfate (morphine) 2 mg Q4H PRN IV SEVERE PAIN LEVEL 7-10 Last administered on 03/16/17 18:43; Admin Dose 2 MG; Start 03/11/17 at 09:00 Docusate Sodium (Colace) 100 mg Q12H PRN PO CONSTIPATION Last administered on 03/16/17 14:37; Admin Dose 100 MG; Start 03/11/17 at 09:00 Magnesium Hydroxide 30 ml 30 ml DAILY PRN PO CONSTIPATION Last administered on 03/16/17 14:37; Admin Dose 30 ML; Start 03/11/17 at 09:00 Ampicillin Sodium/ Sulbactam Sodium (Unasyn 3gm/NS (Pmx)) 100 ml @ 100 mls/hr Q6 IVPB Last administered on 03/16/17 18:51; Admin Dose 100 MLS/HR; Start at 09:30 Chlorhexidine Gluconate (Peridex) 15 ml Q12 MT Last administered on 03/16/17 20:56; Admin Dose 15 ML; Start 03/11/17 at 09:30 Nicotine (Nicoderm 21 Mg/ 24hr) 1 patch DAILY TRANSDERM Last administered on 09:51; Admin Dose 1 PATCH; Start 03/11/17 at 09:30 Diphenhydramine HCl (Benadryl) 25 mg Q6H PRN IV ITCHING Last administered on 21:05; Admin Dose 25 MG; Start 03/12/17 at 16:00 Lorazepam (Ativan) 0.5 mg Q6H PRN IV anxiety, agitation; Start 03/12/17 at 16: 00 Dicyclomine HCl (Bentyl) 20 mg QID PRN PO abdominal cramp Last administered on 03/13/17 14:17; Admin Dose 20 MG; Start 03/13/17 at 12:30 Mupirocin (Bactroban) 1 applic BID TOP Last administered on 03/16/17 20:56; Admin Dose 1 APPLIC; Start 03/14/17 at 09:00 Duloxetine HCl (Cymbalta) 30 mg DAILY PO Last administered on 03/16/17 09:51 ; Admin Dose 30 MG; Start 03/14/17 at 10:00 Metronidazole (Flagyl) 500 mg BID PO Last administered on 03/16/17t 20:56; Admin Dose 500 MG; Start 03/15/17 at 21:00 FILIBERTO NEGRO Mar 16, 2017 22:15
[2017-03-17 02:29] VITALS: BP 109/63; RESP 18
[2017-03-17] MEDS: morphine 2 MG INJ IV PRN ×2 (02:40→09:23)
[2017-03-17 05:17] LABS: BASOPHILS % 0.9 % (0.0-2.0); EOSINOPHILS # 0.2 10^3/ul (0.0-0.5); EOSINOPHILS % 3.4 % (0.0-7.0); HEMATOCRIT 37.3 % (37.0-47.0); HEMOGLOBIN 11.9 g/dl (12.0-16.0); LYMPHOCYTES # 1.5 10^3/ul (0.8-2.9); MEAN CORPUSCULAR HEMOGLOBIN 29.2 pg (29.0-33.0); MEAN CORPUSCULAR HGB CONC 31.9 g/dl (32.0-37.0); MEAN CORPUSCULAR VOLUME 91.6 fl (82.0-101.0); MEAN PLATELET VOLUME 9.9 fl (7.4-10.4); MONOCYTE # 0.4 10^3/ul (0.3-0.9); MONOCYTES % 7.7 % (0.0-11.0); NEUTROPHIL # 2.6 10^3/ul (1.6-7.5); NEUTROPHILS % 54.9 % (39.0-77.0); PLATELET COUNT 286 10^3/UL (140-415); RED BLOOD COUNT 4.07 10^6/ul (4.20-5.40); RED CELL DISTRIBUTION WIDTH 13.8 % (11.5-14.5); WHITE BLOOD COUNT 4.7 10^3/ul (4.8-10.8)
[2017-03-17] MEDS: AMPICILLIN/SULB 3 GM/NS (PMX) 100 ML IVPB SCH ×3 (05:31→17:18)
[2017-03-17 05:55] LABS: CALCIUM 9.2 mg/dl (8.4-10.2); CREATININE 0.59 mg/dl (0.44-1.00); PHOSPHORUS 4.3 mg/dl (2.5-4.9); POTASSIUM 4.5 mmol/L (3.5-5.1)
[2017-03-17 07:30] VITALS: BP 107/70; RESP 18
[2017-03-17] MEDS: DULOXETINE 30 MG CAP DR PO SCH (09:15)
[2017-03-17] MEDS: metroNIDAZOLE 500 MG TAB PO SCH ×2 (09:15→20:24)
[2017-03-17] MEDS: NICOTINE (21 MG/24 HR) PATCH TRANSDERM SCH (09:16)
[2017-03-17] MEDS: MUPIROCIN 2% 22 GM OINT TOP SCH ×2 (09:16→20:24)
[2017-03-17] MEDS: CHLORHEXIDINE GLUCONATE 15 ML UD CUP MT SCH ×2 (09:16→20:24)
--- NOTE | 2017-03-17 14:00 | CONS ---
Date/Time of Note Date/Time of Note DATE: 03/17/17 TIME: 13:59 Consult Date/Type/Reason Admit Date/Time Mar 13, 2017 at 16:46 Type of Consultation: ID Objective Vital Signs Date Time Temp Pulse Resp B/P Pulse Ox O2 Delivery O2 Flow Rate FiO2 03/17/17 07:30 98.0 66 18 107/70 98 Intake and Output 03/16/17 03/16/17 03/17/17 15:00 23:00 07:00 Intake Total 1350 ml 350 ml Balance 1350 ml 350 ml Results/Medications Result Diagram: 03/17/17 0447 03/17/17 0447 Results 24 hrs Laboratory Tests Test 03/17/17 04:47 White Blood Count 4.7 L Red Blood Count 4.07 L Hemoglobin 11.9 L Hematocrit 37.3 Mean Corpuscular Volume 91.6 Mean Corpuscular Hemoglobin 29.2 Mean Corpuscular Hemoglobin Concent 31.9 L Red Cell Distribution Width 13.8 Platelet Count 286 Mean Platelet Volume 9.9 Neutrophils % 54.9 Lymphocytes % 32.0 Monocytes % 7.7 Eosinophils % 3.4 Basophils % 0.9 Nucleated Red Blood Cells % 0.0 Neutrophils # 2.6 Lymphocytes # 1.5 Monocytes # 0.4 Eosinophils # 0.2 Basophils # 0.0 Nucleated Red Blood Cells # 0.0 Sodium Level 138 Potassium Level 4.5 Chloride Level 101 Carbon Dioxide Level 32 H Anion Gap 10 Blood Urea Nitrogen 12 Creatinine 0.59 Glucose Level 91 Calcium Level 9.2 Phosphorus Level 4.3 Magnesium Level 2.0 Medications Current Medications Ondansetron HCl (Zofran Inj) 4 mg Q6H PRN IV NAUSEA AND/OR VOMITING; Start at 09:00 Acetaminophen (Tylenol Tab) 650 mg Q6H PRN PO PAIN LEVEL 1-3 OR FEVER; Start 03/11/17 at 09:00 Acetaminophen/ Hydrocodone Bitart ([place] (5/325)) 1 tab Q6H PRN PO MODERATE PAIN LEVEL 4-6 Last administered on 03/16/17 13:01; Admin Dose 1 TAB; Start 03/11/17 at 09:00 Morphine Sulfate (morphine) 2 mg Q4H PRN IV SEVERE PAIN LEVEL 7-10 Last administered on 03/17/17 09:23; Admin Dose 2 MG; Start 03/11/17 at 09:00 Docusate Sodium (Colace) 100 mg Q12H PRN PO CONSTIPATION Last administered on 03/16/17 14:37; Admin Dose 100 MG; Start 03/11/17 at 09:00 Magnesium Hydroxide 30 ml 30 ml DAILY PRN PO CONSTIPATION Last administered on 03/16/17 14:37; Admin Dose 30 ML; Start 03/11/17 at 09:00 Ampicillin Sodium/ Sulbactam Sodium (Unasyn 3gm/NS (Pmx)) 100 ml @ 100 mls/hr Q6 IVPB Last administered on 03/17/17 11:40; Admin Dose 100 MLS/HR; Start at 09:30 Chlorhexidine Gluconate (Peridex) 15 ml Q12 MT Last administered on 03/17/17 09:16; Admin Dose 15 ML; Start 03/11/17 at 09:30 Nicotine (Nicoderm 21 Mg/ 24hr) 1 patch DAILY TRANSDERM Last administered on 09:16; Admin Dose 1 PATCH; Start 03/11/17 at 09:30 Diphenhydramine HCl (Benadryl) 25 mg Q6H PRN IV ITCHING Last administered on 21:05; Admin Dose 25 MG; Start 03/12/17 at 16:00 Lorazepam (Ativan) 0.5 mg Q6H PRN IV anxiety, agitation; Start 03/12/17 at 16: 00 Dicyclomine HCl (Bentyl) 20 mg QID PRN PO abdominal cramp Last administered on 03/13/17 14:17; Admin Dose 20 MG; Start 03/13/17 at 12:30 Mupirocin (Bactroban) 1 applic BID TOP Last administered on 03/17/17 09:16; Admin Dose 1 APPLIC; Start 03/14/17 at 09:00 Duloxetine HCl (Cymbalta) 30 mg DAILY PO Last administered on 03/17/17 09:15 ; Admin Dose 30 MG; Start 03/14/17 at 10:00 Metronidazole (Flagyl) 500 mg BID PO Last administered on 03/17/17 09:15; Admin Dose 500 MG; Start 03/15/17 at 21:00 Assessment/Plan Chief Complaint/Hosp Course Looks comfortable, no fevers Facial ultrasound done 03/05 revealed subcutaneous fluid collection measuring 5.1 x 0.9 x 2.8 cm at the site of the palpable lesion in the left cheek Abx: Unasyn PHYSICAL EXAMINATION: GENERAL: The patient is a disheveled with poor hygiene. SKIN: Without generalized rash. HEENT: Left facial swelling much better NECK: Supple. LYMPH NODES: None palpable. CHEST: Decreased breath sounds at the bases. HEART: Without murmur or gallop. ABDOMEN: Soft, nontender, bowel tones present. EXTREMITIES: Without cyanosis, clubbing or edema. Assessment: 1. Left facial cellulitis/periodontal abscess 2. 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 GPR bacteremia consistent with contaminant 4. Substance abuse 5. Homelessness Plan: Remains stable, continue antibiotics. Patient needs to be seen by oral surgeon for abscess drainage, pending outpatient arrangements [facility] staff Problems: ARNOL DIGGS NP Mar 17, 2017 14:00
[2017-03-17 14:18] VITALS: BP 116/66; RESP 18
[2017-03-17] MEDS: DIPHENHYDRAMINE 50 MG INJ IV PRN (17:18)
--- NOTE | 2017-03-17 17:25 | PN ---
Date/Time of Note Date/Time of Note DATE: 03/17/17 TIME: 17:23 Assessment/Plan VTE Prophylaxis VTE Prophylaxis Intervention: SCD's Lines/Catheters IV Catheter Type (from Nrs): Peripheral IV Urinary Cath still in place: No Assessment/Plan Chief Complaint/Hosp Course Assessment/Plan 1. Left facial swelling secondary to dental abscess - Swelling has significantly improved on IV antibiotics but still has hard area above left maxillary sinus - repeat US soft tissue 03/15 showed fluid collection still - CT face showed persistent extensive left facial soft tissue swelling with soft tissue inflammatory changes over the left maxilla and mandible.. The previously noted thick-walled fluid collection or phlegmon appears mildly increased in size measuring approximately 2.4 x 1.8 x 2.9 cm. The measurement is suboptimal due to ill-defined borders. Focal lucency about the left maxillary tooth ( series 4, image 129) is unchanged. Enlarged cervical lymph nodes appear mildly decreased in size. - ENT consulted, however states it is a oral surgery issue, will need oral surgery inpatient or outpatient - ID on board and consultation appreciated. Will continue on Unasyn - Blood cultures show no growth - Discussed with sister there is no inhouse oral surgeon and will need to treat the swelling and have her follow up once stable and discharged with oral surgery #BV -flagyl 2. Substance abuse - Meth user and last used on Wednesday. Will monitor for withdrawal symptoms - Currently stable 3. Tobacco abuse - Nicotine patch 4. Homelessness - SW spoke with patient during last patient and she refused all services. When condition improves, will re-address with patient 5. Hypokalemia - stable 6. Iron deficiency anemia - on iron supplements. Doing well 7. Arthritis - Offered Tylenol but states doesn't help. Also complaints of generalized muscle aches and will try Cymbalta for now. Adjust medications based on effectiveness 8. Disposition - oral surgeon appt confirmed for tomorrow at 4 PM with sister, Tatyana. Patient will be discharged as close to that time as possible to ensure stability. Sister will be here at 2pm tomorrow to pickle maker patient to take her directly to oral surgeon's office. Problems: Subjective 24 Hr Interval Summary Free Text/Dictation no acute change Exam/Review of Systems Vital Signs Vitals Vital Signs Date Time Temp Pulse Resp B/P Pulse Ox O2 Delivery O2 Flow Rate FiO2 03/17/17 14:18 98.1 86 18 116/66 98 Intake and Output 03/16/17 03/16/17 03/17/17 15:00 23:00 07:00 Intake Total 1350 ml 350 ml Balance 1350 ml 350 ml Exam Constitutional: alert, distress, oriented, disheveled, poor hygiene Eyes: EOMI ENMT: mild left cheek swelling. Neck: non-tender, supple Respiratory: clear to auscultation, No crackles/rales, No wheezing Cardiovascular: regular rate and rhythm, No murmurs/extra sounds, No systolic murmur Gastrointestinal: bowel sounds, mild tenderness LLQ, soft, No distended, No mass Genitourinary - Female: No CVA tenderness Musculoskeletal: nl extremities to inspection, No spine non-tender Extremities: normal pulses, No clubbing, No cyanosis, No edema Neurological: SHOEBLACK II-XII intact, nl mental status, nl speech Results Result Diagram: 03/17/177 03/17/17446 Results 24 hrs Laboratory Tests Test 03/17/17 04:47 White Blood Count 4.7 L Red Blood Count 4.07 L Hemoglobin 11.9 L Hematocrit 37.3 Mean Corpuscular Volume 91.6 Mean Corpuscular Hemoglobin 29.2 Mean Corpuscular Hemoglobin Concent 31.9 L Red Cell Distribution Width 13.8 Platelet Count 286 Mean Platelet Volume 9.9 Neutrophils % 54.9 Lymphocytes % 32.0 Monocytes % 7.7 Eosinophils % 3.4 Basophils % 0.9 Nucleated Red Blood Cells % 0.0 Neutrophils # 2.6 Lymphocytes # 1.5 Monocytes # 0.4 Eosinophils # 0.2 Basophils # 0.0 Nucleated Red Blood Cells # 0.0 Sodium Level 138 Potassium Level 4.5 Chloride Level 101 Carbon Dioxide Level 32 H Anion Gap 10 Blood Urea Nitrogen 12 Creatinine 0.59 Glucose Level 91 Calcium Level 9.2 Phosphorus Level 4.3 Magnesium Level 2.0 Medications Medications Current Medications Ondansetron HCl (Zofran Inj) 4 mg Q6H PRN IV NAUSEA AND/OR VOMITING; Start at 09:00 Acetaminophen (Tylenol Tab) 650 mg Q6H PRN PO PAIN LEVEL 1-3 OR FEVER; Start 03/11/17 at 09:00 Acetaminophen/ Hydrocodone Bitart ([place] (5/325)) 1 tab Q6H PRN PO MODERATE PAIN LEVEL 4-6 Last administered on 03/16/17 13:01; Admin Dose 1 TAB; Start 03/11/17 at 09:00 Morphine Sulfate (morphine) 2 mg Q4H PRN IV SEVERE PAIN LEVEL 7-10 Last administered on 03/17/17 09:23; Admin Dose 2 MG; Start 03/11/17 at 09:00 Docusate Sodium (Colace) 100 mg Q12H PRN PO CONSTIPATION Last administered on 03/16/17 14:37; Admin Dose 100 MG; Start 03/11/17 at 09:00 Magnesium Hydroxide 30 ml 30 ml DAILY PRN PO CONSTIPATION Last administered on 03/16/17 14:37; Admin Dose 30 ML; Start 03/11/17 at 09:00 Ampicillin Sodium/ Sulbactam Sodium (Unasyn 3gm/NS (Pmx)) 100 ml @ 100 mls/hr Q6 IVPB Last administered on 03/17/17 17:18; Admin Dose 100 MLS/HR; Start at 09:30 Chlorhexidine Gluconate (Peridex) 15 ml Q12 MT Last administered on 03/17/17 09:16; Admin Dose 15 ML; Start 03/11/17 at 09:30 Nicotine (Nicoderm 21 Mg/ 24hr) 1 patch DAILY TRANSDERM Last administered on 09:16; Admin Dose 1 PATCH; Start 03/11/17 at 09:30 Diphenhydramine HCl (Benadryl) 25 mg Q6H PRN IV ITCHING Last administered on 17:18; Admin Dose 25 MG; Start 03/12/17 at 16:00 Lorazepam (Ativan) 0.5 mg Q6H PRN IV anxiety, agitation; Start 03/12/17 at 16: 00 Dicyclomine HCl (Bentyl) 20 mg QID PRN PO abdominal cramp Last administered on 03/13/17 14:17; Admin Dose 20 MG; Start 03/13/17 at 12:30 Mupirocin (Bactroban) 1 applic BID TOP Last administered on 03/17/17 09:16; Admin Dose 1 APPLIC; Start 03/14/17 at 09:00 Duloxetine HCl (Cymbalta) 30 mg DAILY PO Last administered on 03/17/17 09:15 ; Admin Dose 30 MG; Start 03/14/17 at 10:00 Metronidazole (Flagyl) 500 mg BID PO Last administered on 03/17/17 09:15; Admin Dose 500 MG; Start 03/15/17 at 21:00 FILIBERTO NEGRO Mar 17, 2017 17:25
[2017-03-17 20:00] VITALS: BP 112/60; RESP 19
[2017-03-17] MEDS: HYDROCODONE/APAP (5/325) TAB PO PRN (21:22)
[2017-03-18] MEDS: AMPICILLIN/SULB 3 GM/NS (PMX) 100 ML IVPB SCH ×3 (00:25→11:57)
[2017-03-18 02:00] VITALS: BP 106/60; RESP 20
[2017-03-18] MEDS: DIPHENHYDRAMINE 50 MG INJ IV PRN ×2 (03:20→09:26)
[2017-03-18] MEDS: HYDROCODONE/APAP (5/325) TAB PO PRN ×2 (05:37→13:05)
[2017-03-18 08:41] VITALS: BP 111/65; RESP 18
[2017-03-18] MEDS: NICOTINE (21 MG/24 HR) PATCH TRANSDERM SCH (09:18)
[2017-03-18] MEDS: DULOXETINE 30 MG CAP DR PO SCH (09:18)
[2017-03-18] MEDS: CHLORHEXIDINE GLUCONATE 15 ML UD CUP MT SCH (09:18)
[2017-03-18] MEDS: metroNIDAZOLE 500 MG TAB PO SCH (09:18)
[2017-03-18] MEDS: MUPIROCIN 2% 22 GM OINT TOP SCH (09:19)
--- NOTE | 2017-03-18 10:09 | PDOCDIS ---
Discharge Instructions CONDITION Patient Condition: Stable HOME CARE INSTRUCTIONS: Special Diet: MECHANICAL SOFT ACTIVITY: Activity Restrictions: Slowly Increase Activity FOLLOW UP/APPOINTMENTS Follow-up Plan 1. Immediately go to an oral surgeons office, same day for left cheek/tooth abscess 2. Continue to take antibiotics, but know that only an oral surgeon can resolve the issue 3. Take all medications as directed FILIBERTO NEGRO Mar 18, 2017 10:09
[2017-03-18] MEDS ORDERED: DULO30CA45 PO (10:12)
[2017-03-18] MEDS ORDERED: METR500T PO (10:12)
[2017-03-18] MEDS ORDERED: AMOX1TAB10 PO (10:12)
[2017-03-18 13:40] VITALS: BP 115/7; RESP 18
--- NOTE | 2017-03-18 13:46 | CONS ---
Date/Time of Note Date/Time of Note DATE: 03/18/17 TIME: 13:45 Consult Date/Type/Reason Admit Date/Time Mar 13, 2017 at 16:46 Type of Consultation: ID Objective Vital Signs Date Time Temp Pulse Resp B/P Pulse Ox O2 Delivery O2 Flow Rate FiO2 03/18/17 08:41 98.0 78 18 111/65 98 Intake and Output 03/17/17 03/17/17 03/18/17 15:00 23:00 07:00 Intake Total 100 ml 1340 ml 800 ml Balance 100 ml 1340 ml 800 ml Results/Medications Result Diagram: 03/17/17 0447 03/17/17 0447 Medications Current Medications Ondansetron HCl (Zofran Inj) 4 mg Q6H PRN IV NAUSEA AND/OR VOMITING; Start at 09:00 Acetaminophen (Tylenol Tab) 650 mg Q6H PRN PO PAIN LEVEL 1-3 OR FEVER; Start 03/11/17 at 09:00 Acetaminophen/ Hydrocodone Bitart ([place] (5/325)) 1 tab Q6H PRN PO MODERATE PAIN LEVEL 4-6 Last administered on 03/18/17 13:05; Admin Dose 1 TAB; Start 03/11/17 at 09:00 Morphine Sulfate (morphine) 2 mg Q4H PRN IV SEVERE PAIN LEVEL 7-10 Last administered on 03/17/17 09:23; Admin Dose 2 MG; Start 03/11/17 at 09:00 Docusate Sodium (Colace) 100 mg Q12H PRN PO CONSTIPATION Last administered on 03/16/17 14:37; Admin Dose 100 MG; Start 03/11/17 at 09:00 Magnesium Hydroxide 30 ml 30 ml DAILY PRN PO CONSTIPATION Last administered on 03/16/17 14:37; Admin Dose 30 ML; Start 03/11/17 at 09:00 Ampicillin Sodium/ Sulbactam Sodium (Unasyn 3gm/NS (Pmx)) 100 ml @ 100 mls/hr Q6 IVPB Last administered on 03/18/17 11:57; Admin Dose 100 MLS/HR; Start at 09:30 Chlorhexidine Gluconate (Peridex) 15 ml Q12 MT Last administered on 03/18/17 09:18; Admin Dose 15 ML; Start 03/11/17 at 09:30 Nicotine (Nicoderm 21 Mg/ 24hr) 1 patch DAILY TRANSDERM Last administered on 09:18; Admin Dose 1 PATCH; Start 03/11/17 at 09:30 Diphenhydramine HCl (Benadryl) 25 mg Q6H PRN IV ITCHING Last administered on 09:26; Admin Dose 25 MG; Start 03/12/17 at 16:00 Lorazepam (Ativan) 0.5 mg Q6H PRN IV anxiety, agitation; Start 03/12/17 at 16: 00 Dicyclomine HCl (Bentyl) 20 mg QID PRN PO abdominal cramp Last administered on 03/13/17 14:17; Admin Dose 20 MG; Start 03/13/17 at 12:30 Mupirocin (Bactroban) 1 applic BID TOP Last administered on 03/18/17 09:19; Admin Dose 1 APPLIC; Start 03/14/17 at 09:00 Duloxetine HCl (Cymbalta) 30 mg DAILY PO Last administered on 03/18/17 09:18 ; Admin Dose 30 MG; Start 03/14/17 at 10:00 Metronidazole (Flagyl) 500 mg BID PO Last administered on 03/18/17 09:18; Admin Dose 500 MG; Start 03/15/17 at 21:00 Assessment/Plan Chief Complaint/Hosp Course Looks comfortable, no fevers Facial ultrasound done 03/05 revealed subcutaneous fluid collection measuring 5.1 x 0.9 x 2.8 cm at the site of the palpable lesion in the left cheek Abx: Unasyn PHYSICAL EXAMINATION: GENERAL: The patient is a disheveled with poor hygiene. SKIN: Without generalized rash. HEENT: Left facial swelling much better NECK: Supple. LYMPH NODES: None palpable. CHEST: Decreased breath sounds at the bases. HEART: Without murmur or gallop. ABDOMEN: Soft, nontender, bowel tones present. EXTREMITIES: Without cyanosis, clubbing or edema. Assessment: 1. Left facial cellulitis/periodontal abscess 2. 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 GPR bacteremia consistent with contaminant 4. Substance abuse 5. Homelessness Plan: Remains stable, continue antibiotics. Pending outpatient arrangements to f/u with oral surgeon for abscess drainage DW staff Problems: ISMAIL-ZADE,NERA MAMMALOGIST Mar 18, 2017 13:46
--- NOTE | 2017-03-18 14:43 | DS ---
Date/Time of Note Date/Time of Note DATE: 03/18/17 TIME: 14:43 Discharge Summary Admission/Discharge Info Admit Date/Time Mar 13, 2017 at 16:46 Discharge Date/Time Patient Condition: Stable Hx of Present Illness 36 yo F with PMH polysubstance abuse including Meth and admits to last using Wednesday/Wednesday, prediabetes, and "spinal inflammation" presented to ED with 3 days of worsening facial swelling. She describes the pain as sharp and pressure like, with nausea no vomiting, fevers, chills, and difficulty breathing. She states she is hungry but has been having difficulty eating. Sister at bedside and states she did follow up with the dentist but was referred to oral surgeon instead. [place] [address] the streets and patients sister was unaware of her previous discharge so follow up was delayed. Patient presented to [facility] last month for similar issues. Per records she was found to have periodontal abscess involving left maxillary tooth #13 which breaks through the maxillary cortex with surrounding soft tissue abscess measuring [id number] mm with large amount of surrounding cellulitis and reactive lymph nodes. She was treated with broad-spectrum antibiotics, pain control and IV fluids. She was seen by Dr. Cabrera in the ED where I&D of facial abscess was performed. She was continued on IV antibiotics and seen by infectious disease specialist. Swelling started to subside and she was discharged home on PO antibiotics. Patient was also evaluated by social service technician for substance abuse as well as homelessness situation. However, patient refused homelessness resources. Hospital Course Patient is a 36-year-old female with a past medical history of being homeless and medical noncompliance who presents with a second time to [facility] for same left tooth and cheek abscess. During the first admission, ENT saw patient and after multiple attempts performed an incision and drainage and patient was discharged with oral antibiotics to follow-up with oral surgeon as soon as possible. Patient did not follow through instructions and did not follow-up with oral surgeon and returned with a recurrence of the same abscess. Patient was given IV antibiotics and seen by infectious disease and the swelling substantially decreased. ENT was again consulted, however he stated that she would need an oral surgeon to remove the infected area and states that this is not an ENT matter. Patient was continued on IV antibiotics until an appointment with an oral surgeon could be secured. Upon speaking with patient's sister, an oral surgeon appointment for same-day procedure was scheduled at 4 PM today, for patient to be picked up at 2 PM to head straight to the surgeon's office. Patient will still be given a prescription for Augmentin, however it was clearly explained that this is a temporizing measure and will not clear up the abscess. Patient was also discharged with a prescription of Cymbalta for mood disorder as well as metronidazole for bacterial vaginosis. Patient will be discharged upon the care of her sister Tatyana. Patient also states that she will follow with her primary care provider as soon as possible. Discharge diagnosis Left facial swelling Dental abscess Bacterial vaginosis Substance abuse Tobacco use Electrolyte derangement Iron deficiency anemia Home Meds Active Scripts Duloxetine Hcl* (Cymbalta*) 30 Mg Capsule., 30 MG PO DAILY for 30 Days, #30 Prov:FILIBERTO NEGRO 03/18/17 Metronidazole* (Flagyl*) 500 Mg Tablet, 500 MG PO BID for 4 Days, #8 TAB Prov:FILIBERTO NEGRO 03/18/17 Amoxicillin/Potassium Clav (Amox-Clav 875-125 mg Tablet) 875-125 mg Tab, 1 TAB PO Q12 for 10 Days, #20 TAB Prov:FILIBERTO ENGRO 03/18/17 Ibuprofen* (Motrin*) 400 Mg Tab, 400 MG PO Q6H Y for PAIN, #30 TAB Prov:DILIP BRITO NP 01/26/17 Follow-up Plan 1. Immediately go to an oral surgeons office, same day for left cheek/tooth abscess 2. Continue to take antibiotics, but know that only an oral surgeon can resolve the issue 3. Take all medications as directed Primary Care Provider [facility] Time spent on discharge: > 30 minutes FILIBERTO NEGRO Mar 18, 2017 14:43
== END 2017-03-18 15:03 | disposition home or self-care (01) | DRG 158 ==
LOC: FTE 00:22 → PP2 05:50 → OBSVTOIN 16:45 → INTOOBSV 16:45 → PP2 19:14 → OBSVTOIN 03-13 16:46
PROVIDERS: ADMIT Family Medicine; ATTEND Family Medicine
DX: K05.219 Aggressive periodontitis, localized, unspecified severity (principal); K12.2 Cellulitis and abscess of mouth; E87.8 Other disorders of electrolyte and fluid balance, not elsewhere classified; N39.0 Urinary tract infection, site not specified; F15.10 Other stimulant abuse, uncomplicated; D50.9 Iron deficiency anemia, unspecified; E87.6 Hypokalemia; Z59.0 Homelessness; Z22.322 Carrier or suspected carrier of Methicillin resistant Staphylococcus aureus; M19.90 Unspecified osteoarthritis, unspecified site; J01.90 Acute sinusitis, unspecified; N76.0 Acute vaginitis; J01.81 Other acute recurrent sinusitis; B96.89 Other specified bacterial agents as the cause of diseases classified elsewhere; F17.200 Nicotine dependence, unspecified, uncomplicated
CPT/HCPCS: 36415; 70486; 76536; 80048; 80053; 80069; 81001; 82962; 83605; 83690; 83735; 84100; 84703; 85025; 87040; 87081; 87086; 96365; 96366; 96368; 96375; 96376; 99217; G0378; J0295; J1200; J2060; J2270; J3480; J7030; Q9967

== ENCOUNTER 2017-05-14 02:56 | Emergency (ER) | payer OTHER ==
[~2017-05-14] VITALS: Ht 170.2 cm; Wt 68.0 kg
[~2017-05-14 02:56] MED LIST changes: +DULO30CA45 PO; +METR500T PO
[2017-05-14 02:59] VITALS: Ht 170.2 cm; Wt 68.0 kg
[2017-05-14] MEDS ORDERED: ACET325T33 PO (03:28)
--- NOTE | 2017-05-14 03:50 | ERD ---
ER Documentation Chief Complaint Chief Complaint bib self, cc: cellulitis on face, on left elbow, mrsa +, HPI 36 year old female homeless patient brought in by self for evaluation of right side of face. Patient states that she had an abscess on her face and was admitted a couple months prior to being seen. Patient states that she try to follow-up with dentist, denies any fevers. Patient also complains of left elbow pain. Her third complaint is that she has MRSA in her nostrils ROS All systems reviewed and are negative except as per history of present illness. Medications Home Meds Active Scripts Acetaminophen* (Tylenol*) 325 Mg Tablet, 2 TAB PO Q6 Y for PAIN AND OR ELEVATED TEMP, #30 TAB Prov:MAIRA MACKEY PA-C 05/14/17 Duloxetine Hcl* (Cymbalta*) 30 Mg Capsule.dr, 30 MG PO DAILY for 30 Days, #30 Prov:FILIBERTO NEGRO 03/18/17 Metronidazole* (Flagyl*) 500 Mg Tablet, 500 MG PO BID for 4 Days, #8 TAB Prov:FILIBERTO NEGRO 03/18/17 Amoxicillin/Potassium Clav (Amox-Clav 875-125 mg Tablet) 875-125 mg Tab, 1 TAB PO Q12 for 10 Days, #20 TAB Prov:FILIBERTO NEGRO 03/18/17 Ibuprofen* (Motrin*) 400 Mg Tab, 400 MG PO Q6H Y for PAIN, #30 TAB Prov:DILIP BRITO NP 01/26/17 Allergies Allergies: Coded Allergies: No Known Allergy (Unverified , 01/24/17) PMhx/Soc Anesthesia Reaction: No Hx Neurological Disorder: No Hx Respiratory Disorders: No Hx Cardiac Disorders: No Hx Psychiatric Problems: No Hx Miscellaneous Medical Probl: Yes (ovarian cancer, MRSA carrier, prediabetes) Hx Alcohol Use: No Hx Substance Use: Yes (IV meth) Hx Tobacco Use: Yes Smoking Status: Current every day smoker Physical Exam Vitals Vital Signs Date Time Temp Pulse Resp B/P Pulse Ox O2 Delivery O2 Flow Rate FiO2 05/14/17 02:59 98.5 88 18 150/89 100 Physical Exam Const: WDWN Head: Atraumatic Eyes: Normal Conjunctiva ENT: Normal External Ears, Nose and Mouth. Neck: Full range of motion..~ No meningismus. Resp: Clear to auscultation bilaterally Cardio: Regular rate and rhythm, no murmurs Abd: Soft, non tender, non distended. Normal bowel sounds Skin: No petechiae or rashes. No erythema, warmth or induration felt. No facial swelling Back: No midline or flank tenderness Ext: No cyanosis, or edema Neur: Awake and alert Psych: Normal Mood and Affect Procedures/MDM This is a 36-year-old homeless patient that is complaining of multiple complaints. Patient states that a few months ago she was in admitted for an abscess on the face and she wants to make sure she does not have that again. On examination there was no swelling, no evidence of facial abscess or cellulitis. I discussed the patient that it is best for her to follow-up with dentist. Patient is also complaining of left elbow pain which has a superficial bursitis however there is no evidence of septic arthritis. I discussed that she will need to follow-up in the clinic for further evaluation management. Patient is stable to be discharged home with strict precautions return to the emergency department for any worsening signs or symptoms. I have consulted my supervising physician Dr. Minor who agrees with plan above Departure Diagnosis: Primary Impression: Pain, dental Additional Impression: Bursitis Condition: Stable Patient Instructions: What Is Bursitis?, Dental Pain, Bursitis, Elbow ( Olecranon) Referrals: [facility], [facility] YOU HAVE RECEIVED A MEDICAL SCREENING EXAM AND THE RESULTS INDICATE THAT YOU DO NOT HAVE A CONDITION THAT REQUIRES URGENT TREATMENT IN THE EMERGENCY DEPARTMENT. FURTHER EVALUATION AND TREATMENT OF YOUR CONDITION CAN WAIT UNTIL YOU ARE SEEN IN YOUR DOCTORS OFFICE WITHIN THE NEXT 1-2 DAYS. IT IS YOUR RESPONSIBILITY TO MAKE AN APPOINTMENT FOR FOLOW-UP CARE. IF YOU HAVE A PRIMARY DOCTOR --you should call your primary doctor and schedule an appointment IF YOU DO NOT HAVE A PRIMARY DOCTOR YOU CAN CALL OUR PHYSICIAN REFERRAL HOTLINE AT IF YOU CAN NOT AFFORD TO SEE A PHYSICIAN YOU CAN CHOSE FROM THE FOLLOWING [facility] [address] [place] [facility] [address] [facility] [address] [facility] [address] [facility] [facility] [address] [facility]. [facility] [address] [employer] ([facility] walk in clinic) Additional Instructions: FOLLOW UP WITH YOUR PRIMARY CARE PHYSICIAN TOMORROW.Return to this facility if you are not improving as expected. Take all medicines as directed. Return to this facility if you are not improving as expected. MAIRA MACKEY PA-C May 14, 2017 03:50
== END 2017-05-14 04:02 | disposition home or self-care (01) ==
LOC: FTE 02:56
DX: K08.89 Other specified disorders of teeth and supporting structures (principal); M70.31 Other bursitis of elbow, right elbow; F17.210 Nicotine dependence, cigarettes, uncomplicated; Y93.9 Activity, unspecified; Z85.43 Personal history of malignant neoplasm of ovary
CPT/HCPCS: 99283

== ENCOUNTER 2017-10-19 09:36 | Emergency (ER) | END 2017-10-19 15:08 | disposition home or self-care (01) ==

== ENCOUNTER 2018-03-18 21:29 | Emergency (ER) | END 2018-03-19 01:41 | disposition home or self-care (01) ==

== ENCOUNTER 2018-04-17 15:14 | Emergency (ER) | END 2018-04-17 18:09 | disposition home or self-care (01) ==

== ENCOUNTER 2019-03-16 17:15 | Emergency (ER) | payer OTHER ==
[~2019-03-16] VITALS: Ht 170.2 cm; Wt 62.7 kg
[~2019-03-16 17:15] MED LIST changes: +ALBU18HF INHALATION; -AMOX1TAB10 PO; +CEPH-443 PO; -DULO30CA45 PO; +ELVI1TAB3 PO; +HYDR-4011 PO; +IBUP-1542 PO; -IBUP400T22 PO; -METR500T PO; +SULF1TAB31 PO
[2019-03-16 17:19] VITALS: Ht 170.2 cm; Wt 62.7 kg
[2019-03-16] MEDS ORDERED: LIDOCAINE 1% (MDV) 20 ML INJ SC ONE (19:30)
== END 2019-03-16 20:12 | disposition home or self-care (01) ==
LOC: FTE 17:15
DX: N76.4 Abscess of vulva (principal); F17.210 Nicotine dependence, cigarettes, uncomplicated; Z21 Asymptomatic human immunodeficiency virus [HIV] infection status
CPT/HCPCS: 10060; Z7610